=== PATIENT | female | born 1945 | race Caucasian/White ===

== ENCOUNTER 2017-01-11 10:10 | Emergency (ER) | payer MEDICARE ==
[2017-01-11 11:01] LABS: #Basophils 0.1 thou/uL (0.0-0.2); #Eosinphils 0.2 thou/uL (0.0-0.7); #Lymphocytes 1.1 thou/uL (1.20-3.40); #Monocytes 1.1 thou/uL (0.11-0.59); #Neutrophils 6.9 thou/uL (1.40-6.50); %Basophils 1.1 % (0.0-1.0); %Eosinophils 1.8 % (0.0-10.0); %Lymphocytes 11.9 % (21.0-51.0); %Monocytes 11.6 % (0.0-10.0); Hematocrit 30.2 % (36.0-47.0); Mean Platelet Volume 5.7 fL (7.4-10.4); Red Blood Cell (RBC) Count 3.55 mill/uL (4.20-5.40); White Blood Cell (WBC) Count 9.3 thou/uL (4.8-10.8)
[2017-01-11] MEDS ORDERED: Ondansetron HCl/PF 4 MG/2 ML Vial ONE (11:08)
[2017-01-11 11:17] LABS: ALT (SGPT) 21 U/L (8-55); AST (SGOT) 24 U/L (5-34); Alkaline Phosphatase 89 U/L (40-150); Anion Gap 14 mmol/L (10-20); BUN (Urea Nitrogen) 16 mg/dL (9.8-20.1); Bilirubin, Total 0.4 mg/dL (0.2-1.2); CK (CPK) 92 U/L (29-168); Calc. Creatinine Clearance 0 mL/min (70-130); Calcium 8.9 mg/dL (7.8-10.44); Carbon Dioxide 23 mmol/L (23-31); Chloride 95 mmol/L (98-107); Estimated GFR-MDRD 38; Globulin 4.2 g/dL (2.4-3.5); Lipase 60 U/L (8-78); Protein, Total 7.8 g/dL (6.0-8.3)
[2017-01-11 11:21] LABS: Troponin I Less than 0.010 ng/mL (< 0.028)
--- NOTE | 2017-01-11 11:21 | RAD ---
UPRPIGHT PORTABLE CHEST ONE VIEW: History: 71-year-old female with nausea and vomiting, anxiety, neck pain, sore throat. Comparison: 11-15-16 FINDINGS: Heart size is within normal limits. Minimal stable increased linear and interstitial markings bilate rally. Minimal stable deformity of the right humeral neck. Anterior cervical fusion changes of the l ower cervical spine. IMPRESSION: No acute intrathoracic disease. No evidence of pneumonia. Stable from prior study. POS: [facility]
[2017-01-11 14:01] LABS: Bilirubin Negative (Negative); Blood, Urine Negative (Negative); Glucose, Urine (Dipstick) Negative (Negative); Ketone, Urine Negative (Negative); Nitrite Negative (Negative); Protein, Urine (Dipstick) 30 mg/dL (Neg-Trace); Urobilinogen 0.2 mg/dL (0.2-1.0)
[2017-01-11 14:02] LABS: Bacteria/HPF None Seen HPF (None Seen); Hyaline Casts/LPF 0-3 HYALINE CAST LPF (0-3 Hyaline); RBC/HPF 0-3 HPF (0-3); Squamous Epithelial None Seen HPF (0-3)
--- OUTSIDE RECORDS SUMMARY | 2017-01-12 03:20 | XMS | Clinical Summary ---
:1945 Author Organization [facility] Address [address] [place] [address] Phone Care Team Providers Name Role Phone , Primary Care Provider Unavailable Allergies Not on File Current Medications Not on file Active Problems Not on file Social History Tobacco Use Types Packs/Day Years Used Date Never Assessed Sex Assigned at Date Recorded Not on file Last Filed Vital Signs Not on file Plan of Treatment Not on file Results Not on filefrom Last 3 Months
== END 2017-01-11 15:55 | disposition home or self-care (01) ==
LOC: ERS 10:10
DX: R11.2 Nausea with vomiting, unspecified (principal); E11.9 Type 2 diabetes mellitus without complications; I10 Essential (primary) hypertension; K51.90 Ulcerative colitis, unspecified, without complications; Z86.73 Personal history of transient ischemic attack (TIA), and cerebral infarction without residual deficits; Z87.891 Personal history of nicotine dependence; Z79.899 Other long term (current) drug therapy
CPT/HCPCS: 71010; 80053; 81003; 81015; 82553; 83690; 84443; 84484; 85025; 93005; 96361; 96374; J2405

== ENCOUNTER 2017-03-10 05:19 | Inpatient (IN) | payer MEDICARE ==
[2017-03-10 06:07] LABS: #Basophils 0.1 thou/uL (0.0-0.2); #Eosinphils 0.2 thou/uL (0.0-0.7); #Monocytes 0.9 thou/uL (0.11-0.59); %Eosinophils 3.5 % (0.0-10.0); %Lymphocytes 13.7 % (21.0-51.0); %Monocytes 12.3 % (0.0-10.0); Hematocrit 31.8 % (36.0-47.0); Mean Platelet Volume 5.5 fL (7.4-10.4); Red Blood Cell (RBC) Count 3.65 mill/uL (4.20-5.40); White Blood Cell (WBC) Count 7.1 thou/uL (4.8-10.8)
[2017-03-10 06:31] LABS: ALT (SGPT) 16 U/L (8-55); AST (SGOT) 20 U/L (5-34); Alkaline Phosphatase 75 U/L (40-150); Anion Gap 14 mmol/L (10-20); BUN (Urea Nitrogen) 20 mg/dL (9.8-20.1); Bilirubin, Total 0.4 mg/dL (0.2-1.2); Calc. Creatinine Clearance 0 mL/min (70-130); Calcium 9.5 mg/dL (7.8-10.44); Carbon Dioxide 23 mmol/L (23-31); Chloride 93 mmol/L (98-107); Estimated GFR-MDRD 43; Protein, Total 7.9 g/dL (6.0-8.3)
[2017-03-10 06:34] LABS: Troponin I Less than 0.010 ng/mL (< 0.028)
[2017-03-10 07:33] LABS: Bilirubin Negative (Negative); Blood, Urine Negative (Negative); Glucose, Urine (Dipstick) Negative (Negative); Ketone, Urine Negative (Negative); Nitrite Negative (Negative); Protein, Urine (Dipstick) 100 mg/dL (Neg-Trace); Urobilinogen 0.2 mg/dL (0.2-1.0)
[2017-03-10 07:48] LABS: Renal Epithelial 0-3 HPF (0-3); Squamous Epithelial 0-3 HPF (0-3); Transitional Epithelial 0-3 HPF (0-3); WBC/HPF 0-3 HPF (0-3)
[2017-03-10 07:49] LABS: Bacteria/HPF None Seen HPF (None Seen); Hyaline Casts/LPF 0-3 HYALINE CAST LPF (0-3 Hyaline)
[2017-03-10 08:02] LABS: RBC/HPF 0-3 HPF (0-3)
--- NOTE | 2017-03-10 08:55 | RAD ---
CHEST 1 VIEW: Date: 03/10/17 HISTORY: Altered mental status. COMPARISON: Chest 1 view dated 01/22/17. FINDINGS: Lungs are clear. No pneumothorax or effusion. Cardiac silhouette and mediastinal contours within norm al limits. Chronic interstitial changes. IMPRESSION: No acute intrathoracic abnormality. POS: C
--- NOTE | 2017-03-10 09:12 | CT ---
PRELIMINARY REPORT/[facility]/EMERGENCY AFTER HOURS PROCEDURE: EXAM: CT Angiography Head With Intravenous Contrast CLINICAL HISTORY: 72 years old, female; Signs and symptoms; Dizziness and giddiness TECHNIQUE: Axial computed tomographic angiography images of the head with intravenous contrast using CT angiogra phy protocol. CONTRAST: 60 mL of ISOVUE administered intravenously. COMPARISON: No relevant prior studies available. FINDINGS: Right internal carotid artery: No acute process. Intracranial segment is patent with no significant s tenosis. No aneurysm. Right anterior cerebral artery: Unremarkable. No occlusion or significant stenosis. No aneurysm. Right middle cerebral artery: Unremarkable. No occlusion or significant stenosis. No aneurysm. Right posterior cerebral artery: Unremarkable. No occlusion or significant stenosis. No aneurysm. Right vertebral artery: Unremarkable as visualized. Left internal carotid artery: There is mild atherosclerotic calcification of the left internal carot id artery with up to 25% luminal stenosis. No aneurysm. Left anterior cerebral artery: Unremarkable. No occlusion or significant stenosis. No aneurysm. Left middle cerebral artery: Unremarkable. No occlusion or significant stenosis. No aneurysm. Left posterior cerebral artery: Unremarkable. No occlusion or significant stenosis. No aneurysm. Left vertebral artery: Unremarkable as visualized. Basilar artery: Unremarkable. No occlusion or significant stenosis. No aneurysm. Brain: There is a moderately severe burden of hypodense lesions in the frontoparietal white matter. There is no acute cerebral cortical edema. No hemorrhage. IMPRESSION: 1. There is a moderately severe burden of hypodense lesions in the frontoparietal white matter. Thes e are probably secondary to chronic small vessel ischemic disease, however they are age indeterminate without a comparison study and I cannot exclude an acute or subacute lacunar infarction. If there is clinical suspicion of acute ischemia, further evaluation with MRI could be considered. 2. There is no mass effect, midline shift, intracranial hemorrhage, or large arterial vessel territor y acute cerebral cortical edema. 3. There is no high grade arterial stenosis, occlusion, dissection, aneurysm or vascular malformation . 4. There is mild atherosclerotic calcification of the left internal carotid artery with up to 25% lum inal stenosis. This interpretation was based upon the receipt of 488 image(s). EXAM: CT Angiography Neck With Intravenous Contrast CLINICAL HISTORY: 72 years old, female; Signs and symptoms; Dizziness and giddiness TECHNIQUE: Axial computed tomographic angiography images of the neck with intravenous contrast using CT angiogra phy protocol. CONTRAST: 60 mL of ISOVUE administered intravenously. COMPARISON: No relevant prior studies available. FINDINGS: VASCULATURE: Right common carotid artery: Unremarkable. No significant stenosis. No dissection or occlusion. Right internal carotid artery: There is 60% stenosis of the right carotid bulb due to calcified plaqu e. There is 50% stenosis of the right internal carotid artery origin due to calcified plaque. No dissect ion or occlusion. Right external carotid artery: Unremarkable. No occlusion. Right vertebral artery: Unremarkable. No significant stenosis. No dissection or occlusion. Left common carotid artery: Unremarkable. No significant stenosis. No dissection or occlusion. Left internal carotid artery: There is 40% stenosis of the left carotid bulb due to calcified atheros clerotic plaque. There is 40% stenosis of the left internal carotid artery origin due to calcified at herosclerotic plaque. No dissection or occlusion. Left external carotid artery: Unremarkable. No occlusion. Left vertebral artery: Unremarkable. No significant stenosis. No dissection or occlusion. NECK: Bones/joints: There is anterior metallic fusion of the mid to lower cervical spine C5-C7. No acute fracture. No dislocation. Soft tissues: Unremarkable as visualized. No mass. Lung apices: There is mild/moderate air trapping in the upper lungs. CAROTID STENOSIS REFERENCE USING NASCET CRITERIA: % ICA stenosis = (1 - narrowest ICA diameter/diameter of distal cervical ICA) x 100. Mild - <50% stenosis. Moderate - 50-69% stenosis. Severe - 70-94% stenosis. Near occlusion - 95-99% stenosis. Occluded - 100% stenosis. IMPRESSION: 1. There is no high grade arterial stenosis, occlusion, dissection, or aneurysm. 2. There is 40% stenosis of the left carotid bulb due to calcified atherosclerotic plaque. 3. There is 40% stenosis of the left internal carotid artery origin due to calcified atherosclerotic plaque. 4. There is 60% stenosis of the right carotid bulb due to calcified plaque. 5. There is 50% stenosis of the right internal carotid artery origin due to calcified plaque. 6. There is mild/moderate air trapping in the upper lungs. This interpretation was based upon the receipt of 488 image(s). Thank you for allowing us to participate in the care of your patient. Dictated and Authenticated by: Chris Gutierrez DO 03/10/2017 7:44 AM Central Time ([place] & [place]) FINAL REPORT CONTRAST ENHANCED CTA NECK AND INTRACRANIAL CTA: Date: 03/10/17 HISTORY: Dizziness, lightheadedness. TECHNIQUE: Contrast enhanced CTA neck and intracranial CTA obtained. 2D and 3D reconstructed images performed on an independent 3D workstation. FINDINGS/IMPRESSION: This is the final report. Preliminary exam was performed by [facility]. I concur with the dictation from [facility]. No significant evidence of intracranial arterial vascular abnormality seen. Bilateral distal CCA and proximal ICA atherosclerotic plaque seen, approxi mately 60% on the right and 40% on the left. POS: [facility]
[2017-03-10] MEDS ORDERED: cefTRIAXone\\ROCEPHIN 1 GM, Syringe 0.4 ML in Sterile Water 9.6 ML SLOW IVP SCH (10:15)
--- NOTE | 2017-03-10 13:40 | HP ---
PRIMARY CARE PHYSICIAN: Dr. Capo Coombs. CHIEF COMPLAINT: Confusion, altered mental state. HISTORY OF PRESENT ILLNESS: This is a 72-year-old patient of Dr. Capo Coombs with a history of a past TIA, type 2 diabetes, chronic kidney disease, anxiety and depression, hypertension, hyperlipidemia, history of coronary artery disease , persistent hyponatremia, who presented to the emergency department with complaints of confusion. She had a similar admission in 01/2017 and was found to be moderately hyponatremic and seem like her symptoms improved with resolving the hyponatremia. A workup has been done with no known etiology for her persistent hyponatremia. She presented to the emergency department and found to have word finding difficulties, slurred speech, and some left-sided neglect, which seems to have resolved at this point. She is now being admitted for further evaluation to rule out for CVA and Neurology evaluation. PAST MEDICAL HISTORY: Positive for hypertension, type 2 diabetes, questionable history of CVA versus transient ischemic attack, resultant seizure disorder. She is followed by Dr. Baxter for this. She has a history of ulcerative colitis followed by Dr. Jarquin. History of tachycardia followed by Dr. Bernal. Again, type 2 diabetes, hypertension, hyperlipidemia, chronic depression and anxiety with grief disorder since the passing of her . Chronic back pain, again chronic hyponatremia. MEDICATIONS: Include metformin 1000 mg b.i.d., Valium 2 mg p.r.n., Lialda 1.2 grams daily, metoprolol 100 mg once daily, Estrace vaginal cream daily, Keppra 500 mg b.i.d. ALLERGIES: TRAMADOL, BYSTOLIC, CIPROFLOXACIN, SEROQUEL. PAST SURGICAL HISTORY: Bilateral cataract removal, cholecystectomy in 2001, cervical neck surgery in 2002, cystoscopy in 11/2016, vein stripping at age of 26, and tubal ligation at age of 31. FAMILY HISTORY: Father with lung cancer. Mother with depression, hypertension, and mental illness. Siblings with schizophrenia and asthma. Son with hypertension. SOCIAL HISTORY: Quit smoking over 15 years ago. No alcohol, no drug use. She lives alone, but at [facility] assisted living. REVIEW OF SYSTEMS: As per the history of present illness. General: She denies any recent fevers or chills. Again, recent hospitalization in 01/2017. HEENT: She denies headache, visual or hearing changes. Cardiovascular: She has occasional episodes of chest pains that come and go. She has been followed by Dr. Bernal. Pulmonary: Denies cough or hemoptysis. Gastrointestinal: Denies nausea, vomiting, abdominal pain, melena, hematochezia. Genitourinary: Denies dysuria or hematuria. Neurologic: Episodes of confusion. She has some numbness in her feet. She denies weakness. Last seizure was several months ago , possibly a year ago. Musculoskeletal: Occasional neck pains, occasional joint pains. PHYSICAL EXAMINATION: VITAL SIGNS: She is afebrile, heart rate in the 80s and 90s, respirations 15, blood pressure 130s/80s. GENERAL: She is awake and alert. Speech is clear. She does seem confused at times with answering questions. No slurred speech. She does have some word finding difficulties at times, may be more stress related. HEENT: Mucosa is moist. NECK: Supple. HEART: Regular rate and rhythm. LUNGS: Clear. ABDOMEN: Obese, soft, nontender, nondistended. EXTREMITIES: With no edema. NEUROLOGIC: Cranial nerves II through XII grossly intact. Strength is 5/5 bilaterally. Sensation, there was some decreased sensation in the dorsum of bilateral feet. LABORATORY DATA AND IMAGING: Sodium 126, potassium 3.8, chloride 93, CO2 23, BUN and creatinine are 20 and 1.23 with a GFR of 43, serum glucose of 203, calcium 9.5, albumin 3.9. White blood cell count 7,100, hemoglobin and hematocrit are 10.4 and 31.8, platelets 393. Urinalysis with 100 protein, small leukocyte esterase. Chest x-ray revealed no acute abnormalities. CT angiogram and [place] angiogram with contrast reveals severe burden of hypodense lesions in the frontal parietal white matter likely secondary to chronic small vessel disease, but cannot rule out acute ischemia, no mass effect , no hemorrhages, no high-grade stenosis or aneurysms, mild atherosclerotic calcification of the left internal carotid artery. ASSESSMENT AND PLAN: This is a 72-year-old female patient who has multiple medical problems including type 2 diabetes, history of cerebrovascular accident , history of depression and anxiety, history of hypertension and hypercholesterolemia, now with acute mental status change and hyponatremia. 1. Mental status change, agree with rule out cerebrovascular accident protocol. We will consult Neurology. PT, OT and speech therapy for evaluation. We will check MRI of the brain. Possibly a component of multi- infarct dementia as well as her anxiety are contributing to her confusion. 2. Carotid stenosis on CT angiogram. Await Neurology evaluation. Consider Vascular Surgery evaluation. 3. Hyponatremia. We will start fluid restriction as well as a normal saline infusion and follow closely. We will continue to look at medication, etiology could be due to her mental state and over hydrating. 4. Coronary artery disease, stable. We will continue Plavix and aspirin. 5. Type 2 diabetes. We will continue the metformin and monitor her renal function. We will start Humalog sliding scale as well. 6. Code status: The patient desires to be FULL CODE. 7. Depression and anxiety. We will continue the diazepam p.r.n. I will consider starting antidepressants. 8. Ulcerative colitis. Appears to be stable. Will continue her oral therapy. MTDD
[2017-03-10] MEDS ORDERED: ISOVUE-370 76%-LOCM 1 ML ONE (13:42)
[2017-03-10] MEDS: Mesalamine DR 400 mg Capsule PO SCH ×2 (15:00→21:00)
--- NOTE | 2017-03-10 15:24 | MRI ---
MRI BRAIN: Date: 03/10/17 HISTORY: Dizziness, lightheadedness. TECHNIQUE: Multiplanar, multisequence noncontrast enhanced MRI of brain obtained. FINDINGS: Comparison made to previous exam from 04/12/16. Images demonstrate numerous areas of decreased signal on the gradient echo sequences throughout the b rain compatible with multiple old areas of tiny petechial hemorrhages, too numerous to count. This wa s seen on the patient's previous MRI and does not appear to be acute. No evidence of areas of diffusi on restriction seen. Areas of bilateral parietal reese-white matter areas of abnormal T2 signal seen o n the FLAIR weighted sequences. These were present on the patient's previous numerous MRIs and are st able. No acute infarctions or significant interval change is seen. Normal flow-voids seen in the jennifer r intracranial vessels. IMPRESSION: Stable MRI appearance of the brain. No acute intracranial abnormality seen. POS: [facility]
[2017-03-10] MEDS ORDERED: HumaLOG 300 UNITS/3 ML VIAL SC SCH (17:00)
[2017-03-10] MEDS: Sodium Chloride 0.9% 1,000 ML IV SCH (17:58)
[2017-03-10] MEDS ORDERED: Dextrose 5% in Water 1,000 ML IV PRN (19:30)
[2017-03-10] MEDS ORDERED: Dextrose 50% Abboject 50 ML SYRINGE IVP PRN (19:30)
[2017-03-10] MEDS ORDERED: HumaLOG 300 UNITS/3 ML VIAL SC PRN (19:30)
[2017-03-10] MEDS ORDERED: Diazepam 5 MG TAB PO PRN (20:26)
[2017-03-10] MEDS: levETIRAcetam 500 MG TAB PO SCH (21:02)
[2017-03-11 05:45] LABS: Anion Gap 10 mmol/L (10-20); BUN (Urea Nitrogen) 19 mg/dL (9.8-20.1); Calc. Creatinine Clearance 47 mL/min (70-130); Carbon Dioxide 24 mmol/L (23-31); Chloride 97 mmol/L (98-107); Estimated GFR-MDRD 43
[2017-03-11] MEDS: Sodium Chloride 0.9% 1,000 ML IV SCH (07:24)
[2017-03-11] MEDS ORDERED: metFORMIN 500 MG TAB PO SCH (08:00)
[2017-03-11] MEDS: Mesalamine DR 400 mg Capsule PO SCH (08:45)
[2017-03-11] MEDS: levETIRAcetam 500 MG TAB PO SCH (08:46)
[2017-03-11] MEDS ORDERED: Clopidogrel Bisulfate 75 MG TAB PO SCH (09:00)
[2017-03-11] MEDS ORDERED: Aspirin 81 mg Enteric Coated Tablet PO SCH (09:00)
[2017-03-11] MEDS ORDERED: Metoprolol Tartrate 50 MG TAB PO SCH (09:00)
[2017-03-11] MEDS ORDERED: Lisinopril 10 MG TAB PO SCH (09:00)
[2017-03-11 11:53] VITALS: BP 164/81; TEMP 98.3
--- NOTE | 2017-03-11 19:26 | DIS ---
DATE OF ADMISSION: 03/10/2017 DATE OF DISCHARGE: 03/11/2017 ADMISSION DIAGNOSES: Confusion, altered mental state. DISCHARGE DIAGNOSES: Hyponatremia, delirium, anxiety, depression. OTHER DIAGNOSES: Type 2 diabetes, ulcerative colitis, coronary artery disease, carotid stenosis. CONSULTATIONS: Dr. Bee for Neurology. PROCEDURES: Telemetry monitoring. MRI of the brain, CT angio of the brain and neck, chest x-ray, fl uid restriction, saline infusion. HOSPITAL COURSE: This is a 72-year-old female patient with multiple medical problems including ulcer ative colitis, history of TIA, history of seizure disorder, history of tachycardia, history of type 2 diabetes, history of anxiety and depression since passing of her presented to the emergency department with altered mental state, confusion, word finding difficulties. She was admitted for rul e out CVA. CT angiogram was done, which revealed carotid stenosis, but no aneurysms. MRI was done, which showed no active changes although chronic ischemic changes. She was seen by Dr. Bee who fe lt like she just had a nonspecific episode of confusion, which has resolved. Urinalysis was negative . She seemed to be back at her baseline. I had a long discussion with her about depression and anxi ety. She has been seeing a counselor as an outpatient and decided to go ahead and start her on any a ntidepressants with close follow up with Dr. Coombs. DISCHARGE PHYSICAL EXAMINATION: VITAL SIGNS: Temperature 97.7, pulse 97, respirations 18, blood pressure 162/98, pulse ox 99% on magda m air. GENERAL: She is awake and alert, in no acute distress. Speech is clear. Conversation was fluid. M ucosa is moist. NECK: Supple. HEART: Regular rate and rhythm. LUNGS: Clear bilaterally. ABDOMEN: Obese. EXTREMITIES: With no edema. She does have decreased sensation on the dorsum of both feet. She says this is chronic and possibly due to her diabetes. DISCHARGE LABORATORY DATA: Sodium 127, potassium 3.8, chloride 97, CO2 of 24, BUN and creatinine 19 and 1.22 with a GFR of 43, serum glucose was 181. Urinalysis was negative. Brain MRI again showed c hronic ischemic changes, but no sign of cerebrovascular accident. Chest x-ray showed no active disea se. CT angiogram revealed [id number] hypodense lesions in the frontoparietal white matter, p robably secondary to chronic small vessel ischemic disease. No mass effect, no midline shift, mild c alcifications in the left internal carotid artery with 40% stenosis and 50%-60% stenosis on the right . DISCHARGE MEDICATIONS: Aspirin 81 mg daily. She is to discontinue the Plavix, Valium 10 mg at bedti me, Keppra 750 mg b.i.d., lisinopril 10 mg daily, Lialda 1.2 mg b.i.d., metformin 1000 mg b.i.d., Lop ressor 100 mg daily, Protonix 40 mg daily, Zoloft 25 mg daily. FOLLOWUP INSTRUCTIONS: Patient to follow up with Dr. Coombs in 1-2 weeks. Discussed fluid restrictio n, limiting to not more than 1 liter a day at this time. She is to restart her aspirin 81 mg a day d ue to the carotid stenosis and heart disease. Again follow up instructions to follow up with Dr. Padmaja cabrera in 1-2 weeks.
== END 2017-03-11 12:41 | DRG 948 ==
LOC: ERS 05:19 → ERHOLD 08:45 → 2SE 14:58
PROVIDERS: ADMIT Internal Medicine; ATTEND Internal Medicine
DX: R41.0 Disorientation, unspecified (principal); E87.1 Hypo-osmolality and hyponatremia; E11.69 Type 2 diabetes mellitus with other specified complication; K51.90 Ulcerative colitis, unspecified, without complications; I65.23 Occlusion and stenosis of bilateral carotid arteries; Z86.73 Personal history of transient ischemic attack (TIA), and cerebral infarction without residual deficits; F32.9 Major depressive disorder, single episode, unspecified; F41.9 Anxiety disorder, unspecified; G40.909 Epilepsy, unspecified, not intractable, without status epilepticus; I25.10 Atherosclerotic heart disease of native coronary artery without angina pectoris
CPT/HCPCS: 36415; 36416; 51701; 70450; 70496; 70498; 70551; 71010; 80048; 80053; 81001; 82553; 84484; 85025; 87086; 93005; 93306; 94760; 96374; A4216; A4353; G8978-GP-CH; G8979-GP-CH; G8980-GP-CH; G9165-GN-CI; G9166-GN-CI; J0696

== ENCOUNTER 2017-05-04 10:12 | Outpatient (CLI) | payer MEDICARE ==
--- NOTE | 2017-05-11 14:13 | EEG ---
Referring Physician: DR. ANDREIA GILMORE EEG # [id number] TEST TYPE: ROUTINE OUTPATIENT PROCEDURE: Outpatient electroencephalogram NAME OF PATIENT: Shira Reid DATE EEG DONE: 05/04/2017 INDICATION: History of seizures and stroke, slurred speech, leg weakness, memory deficit REPORT: This is a 22-channel digital EEG recording utilizing 10-20 international electrode placement system on a patient with history of seizures, stroke, who presents with slurred speech, leg weakness, memory deficit with no seizure or loss of consciousness. During wakefulness, the background activity consists of low to moderate amplitude theta rhythm of 6-7 Hz. It is symmetric and reactive. There is occasionally 8 Hz seen. There is low amplitude fast beta activity noted and also, myogenic activity noted representing frontalis and temporalis muscles bilaterally. DROWSINESS AND SLEEP: Subject is able to attain some drowsiness with diffuse theta activity. There is no clear sleep recorded during this EEG. ABNORMALITIES: Mild diffuse slowing noted. There may be spike and slow wave activity noted in the right hemisphere, posterior region at 10:59:41. There is no other clear convincing epileptiform activity noted throughout the recording. No electrographic seizures noted. INDUCTION: HYPERVENTILATION: With fair effort results in diffuse theta activity. PHOTIC STIMULATION: No photic drive seen. EK per minute. IMPRESSION: DURING THIS EEG, MILD DIFFUSE SLOWING NOTED. THERE MAY BE SPIKE AND SLOW WAVE ACTIVITY NOTED IN THE RIGHT HEMISPHERE, POSTERIOR REGION AT 10:59:41, SEEN ONLY ONCE. THERE IS NO OTHER CLEAR AND CONVINCING EPILEPTIFORM ACTIVITY NOTED THROUGHOUT THE RECORDING. CLINICAL CORRELATION RECOMMENDED. Tag Press Operator: ROSIE Lead Manufacturing Engineer: EEG.PADMINI SALAZAR
== END 2017-05-04 10:13 | disposition home or self-care (01) ==
LOC: EEG 10:12
PROVIDERS: ATTEND Student in an Organized Health Care Education/Training Program
DX: G40.409 Other generalized epilepsy and epileptic syndromes, not intractable, without status epilepticus (principal)
CPT/HCPCS: 95816

== ENCOUNTER 2017-05-09 16:39 | Inpatient (IN) | payer MEDICARE ==
[2017-05-09] MEDS ORDERED: niCARdipine 20MG In NaCl 20 MG/200 ML BAG ONE (16:44)
[2017-05-09 16:57] LABS: Hemoglobin 10.4 g/dL (12.0-16.0); Mean Corpuscular HGB CONC 31.6 g/dL (32.0-36.0); Mean Corpuscular Hemoglobin 27.4 pg (27.0-31.0); Mean Corpuscular Volume 86.9 fl (81.0-99.0); Mean Platelet Volume 5.5 fL (7.4-10.4); Platelet Count 382 thou/uL (130-400); RBC Distribution Width 12.7 % (11.5-14.5); Red Blood Cell (RBC) Count 3.78 mill/uL (4.20-5.40); White Blood Cell (WBC) Count 6.7 thou/uL (4.8-10.8)
[2017-05-09 17:05] LABS: INR-International Normal Ratio 0.9; PTT 34.4 SEC (22.9-36.1); Prothrombin Time 12.6 SEC (12.0-14.7)
[2017-05-09 17:12] LABS: pH, Arterial 7.39 (7.35-7.45)
[2017-05-09 17:13] LABS: Actual Bicarbonate (HCO3a) 22.9 mEq/L (22-26); Analyzer IN Cardio ER; Base Excess (BEa) -1.6 mEq/L (0 (+/-) 2.5); CO2 Tension 38.6 mmHg (35.0-45.0); Calcium, Ionized 1.1 mmol/L (1.12-1.30); Carboxyhemoglobin (COHb) 1.1 gm% (0.0-3.0); Hematocrit-ABG 38.2 % (36.0-47.0); Hemoglobin (Hb) 10.3 g/dL (12.0-16.0); O2 Tension (PaO2) 100.4 mmHg (80.0-100.0); Puncture Site RRA
[2017-05-09 17:23] LABS: Band 15 % (5-11); Eosinophils 4 % (0-10); Lymphocytes 18 % (21-51); MDiff Complete? YES; Monocytes 13 % (0-10); Neutrophil 48 % (42-75); PLT Morphology Comment Appears Adequate; Polychromasia SLIGHT = 2-3 cells (100X) (0-2/hpf); Reactive Lymphocytes 1 % (0-10)
[2017-05-09] MEDS ORDERED: manNITOL 20% 0 ML ONE (17:24)
[2017-05-09 17:25] LABS: CKMB 3.2 ng/mL (0-6.6); Troponin I Less than 0.010 ng/mL (< 0.028)
[2017-05-09 17:36] LABS: ALT (SGPT) 20 U/L (8-55); AST (SGOT) 23 U/L (5-34); Albumin 4.2 g/dL (3.4-4.8); Alkaline Phosphatase 75 U/L (40-150); Anion Gap 14 mmol/L (10-20); BUN (Urea Nitrogen) 19 mg/dL (9.8-20.1); Bilirubin, Total 0.3 mg/dL (0.2-1.2); Calc. Creatinine Clearance 0 mL/min (70-130); Calcium 9.3 mg/dL (7.8-10.44); Carbon Dioxide 24 mmol/L (23-31); Chloride 96 mmol/L (98-107); Estimated GFR-MDRD 43; Globulin 3.8 g/dL (2.4-3.5); Glucose 162 mg/dL (83-110); Potassium 3.3 mmol/L (3.5-5.1); Sodium 131 mmol/L (136-145)
[2017-05-09] MEDS ORDERED: Mannitol 12.5 GM/50 ML IV SCH (17:45)
--- NOTE | 2017-05-09 18:23 | CT ---
NONCONTRAST CT OF THE BRAIN 05/09/17 INDICATION: Stroke alert. Found unresponsive with left sided facial droop. FINDINGS: The examination was compared to a prior dated 01/22/17. There is a 4 cm intraparenchymal hematoma seen within the region of the left thalamus with surrounding vasogenic edema. There is intervertebral ext ension of the third ventricles, lateral ventricles, and fourth ventricles. There is also extension of hemorrhage into the left midbrain. There is left to right midline shift of 4 mm. There is some marvin a present also within the left aspect of the mid brain and dary causing some mild effacement of the a nterior basilar cistern. The mastoid air cells are clear. The skull is intact. IMPRESSION: 1. Intraparenchymal hematoma seen within the region of the left thalamus with interventricular e xtension. 2. There is left to right midline shift of approximately 5 mm. There is some vasogenic edema see n surrounding the hematoma that has components that does extend into the very superior aspect of the left aspect of the mid brain. Vasogenic edema causes some mild effacement of the anterior basilar cis tern. Findings called to Dr. Leblanc at 4:58 p.m. on 05/09/17. Code CR. POS: [facility]
[2017-05-09] MEDS ORDERED: CEFAZOLIN/Water 2 GM/20 ML SYRINGE ONE (18:44)
[2017-05-09] MEDS ORDERED: Bisacodyl 10 MG SUPP PR PRN (18:47)
[2017-05-09] MEDS ORDERED: niCARdipine 20MG in NaCl 200 ML BAG IVPB PRN (18:47)
[2017-05-09 19:07] LABS: Bilirubin Negative (Negative); Blood, Urine Negative (Negative); Clarity CLEAR (Clear); Glucose, Urine (Dipstick) 100 mg/dL (Negative); Leukocyte Negative (Negative); Nitrite Negative (Negative); Protein, Urine (Dipstick) Trace mg/dL (Neg-Trace); Specific Gravity, Urine 1.013 (1.002-1.036); Urobilinogen 0.2 mg/dL (0.2-1.0); pH, Urine 7.5 (5.0-9.0)
[2017-05-09] MEDS: Propofol 1,000 MG/100 ML VIAL IV PRN (19:40)
[2017-05-09] MEDS ORDERED: Sodium Chloride 0.9% 10 ML ONE ×2 (20:05→20:14)
[2017-05-09] MEDS ORDERED: Famotidine/PF 20 mg/2ml Vial SLOW IVP SCH (21:00)
[2017-05-09] MEDS ORDERED: CEFAZOLIN/Water 2 GM/20 ML SYRINGE SLOW IVP SCH (21:30)
[2017-05-09] MEDS ORDERED: Metoprolol Tartrate 5 MG/5 ML VIAL IVP PRN (21:30)
[2017-05-09] MEDS: niCARdipine HCl 25 MG in Sodium Chloride 0.9% 250 ML 240 ML IVPB PRN (22:05)
[2017-05-09] MEDS: Fentanyl 100 MCG/2 ML VIAL SLOW IVP PRN (22:15)
[2017-05-09] MEDS: Sodium Chloride 0.9% 1,000 ML IV SCH (22:16)
[2017-05-10] MEDS: Fentanyl 100 MCG/2 ML VIAL SLOW IVP PRN (02:00)
[2017-05-10] MEDS: niCARdipine HCl 25 MG in Sodium Chloride 0.9% 250 ML 240 ML IVPB PRN ×2 (02:01→20:19)
[2017-05-10 04:45] LABS: #Basophils 0.1 thou/uL (0.0-0.2); #Lymphocytes 0.5 thou/uL (1.20-3.40); #Monocytes 1.2 thou/uL (0.11-0.59); #Neutrophils 10.1 thou/uL (1.40-6.50); %Basophils 0.5 % (0.0-1.0); %Eosinophils 0.1 % (0.0-10.0); %Lymphocytes 4.3 % (21.0-51.0); %Monocytes 10.2 % (0.0-10.0); %Neutrophils 84.9 % (42.0-75.0); Hemoglobin 9.8 g/dL (12.0-16.0); Mean Corpuscular HGB CONC 32.7 g/dL (32.0-36.0); Mean Corpuscular Hemoglobin 28.3 pg (27.0-31.0); Mean Corpuscular Volume 86.5 fl (81.0-99.0); Mean Platelet Volume 5.8 fL (7.4-10.4); Platelet Count 371 thou/uL (130-400); RBC Distribution Width 12.8 % (11.5-14.5); Red Blood Cell (RBC) Count 3.48 mill/uL (4.20-5.40); White Blood Cell (WBC) Count 11.9 thou/uL (4.8-10.8)
[2017-05-10 04:59] LABS: Anion Gap 13 mmol/L (10-20); BUN (Urea Nitrogen) 18 mg/dL (9.8-20.1); Calc. Creatinine Clearance 37 mL/min (70-130); Calcium 8.8 mg/dL (7.8-10.44); Carbon Dioxide 22 mmol/L (23-31); Chloride 100 mmol/L (98-107); Estimated GFR-MDRD 35; Glucose 230 mg/dL (83-110); Potassium 3.9 mmol/L (3.5-5.1); Sodium 131 mmol/L (136-145)
[2017-05-10] MEDS: CEFAZOLIN 1 GM, Syringe 2.5 ML in Sterile Water 7.5 ML SLOW IVP SCH ×3 (05:15→22:07)
--- NOTE | 2017-05-10 06:11 | HP ---
Avery Bocanegra PA-C, dictating for Arnulfo Covington M.D. This is a 50-minute initial patient consult in which greater than 50% of the exam was spent in counse ling and coordinating the patient's care. The remainder of the exam was spent in review of the pio nt's medical records and appropriate imaging studies. CHIEF COMPLAINT: Altered mental status, patient found unresponsive with left thalamic hemorrhage. HISTORY OF PRESENT ILLNESS: Ms. Reid presents to the [facility] via EMS as she [facility] for an unknown length of time. Apparently, the patient wa s speaking with her son roughly at 3:00 and roughly around 4:00 hit her lifeline alert and became unr esponsive. Due to this lifeline alert, EMS was contacted and the patient's daughter came to her the facility where she resides. At that time, the patient was unable to protect her airway and she was i ntubated, received paralytics at that time. She has received no other paralytics in the emergency ro om at the time of the exam at roughly 6 p.m. The patient's daughter provides the history as well as review of patient's medical records. Apparently, the patient has a seizure disorder and has been on Keppra and has a history of hyponatremia. She also was a surgical nurse, but is retired. The zahira johnson was previously on aspirin and had a history of hypertension and systolic blood pressure was in the 200s when she presented earlier tonight. The patient does not use tobacco. She does have a history of some dizziness and TIAs with slight amount of gait difficulty over the past several months for whi ch she has required use of a cane. The patient has not had many falls; however, that the patient's laura espinal knows about. Review of the patient's CT scan shows left thalamic hemorrhage entering into th e left ventricular system and component of hydrocephalus. PHYSICAL EXAMINATION: The patient is currently intubated. Her GCS is V1 E1 M4, which makes her a 6T . She does have corneal reflexes bilaterally. Pupils are sluggishly reactive bilaterally and the ri ght pupil is roughly 3 mm on the right and 5 mm on the left. She is currently overbreathing the vent ilator and has a cough reflex. She also has positive Doll's eyes. She attempts to withdrawal in the bilateral lower extremities and has very minimal withdrawal to painful stimulus on the right with mo re withdrawal to painful stimulus on the left upper extremities. IMPRESSION AND DIAGNOSES: 1. Status post hypertensive bleed into the left thalamic region extending into the left ventricular systems. 2. History of hypertension. PLAN: I have discussed at great length the patient's poor prognosis as has the emergency room. I di d provide options for the family including no intervention versus placement emergently of an EVD. Th e patient's daughter states that she would like to have a fighting chance of life and therefore they have asked us to proceed with placement of the EVD. We will proceed with placement of this in the U. We will elevate her head of bed 30 degrees at all times, repeat head CT for tomorrow. Risks and benefits of an EVD placement were discussed in great length with the patient's daughter as well as wi th her son on the telephone. Again, they both agreed that proceeding with EVD as the next step the m other would like us to take and we will therefore proceed with this. Ample opportunity was given to the patient's family to discuss her questions and concerns they understand that again the patient's p rognosis remains poor even with placement of EVD.
[2017-05-10 07:53] LABS: O2 Tension (PaO2) 119.8 mmHg (80.0-100.0); pH, Arterial 7.44 (7.35-7.45)
[2017-05-10 07:54] LABS: Actual Bicarbonate (HCO3a) 21.2 mEq/L (22-26); Base Excess (BEa) -2.5 mEq/L (0 (+/-) 2.5); Calcium, Ionized 1.2 mmol/L (1.12-1.30); Carboxyhemoglobin (COHb) 1.1 gm% (0.0-3.0); Hematocrit-ABG 32.3 % (36.0-47.0); Hemoglobin (Hb) 9.1 g/dL (12.0-16.0); Potassium - ABG Lab 3.7 mmol/L (3.70-5.30); Puncture Site RRA
[2017-05-10] MEDS: Sodium Chloride 0.9% 1,000 ML IV SCH ×2 (09:09→20:18)
--- NOTE | 2017-05-10 10:37 | PRG ---
DATE OF SERVICE: 05/10/2017 This is a 30 minute initial hospital visit note in which 30 minutes were spent in review the imaging, record, evaluation and examination of the patient, and formulation of a plan. Greater than 50% of t he time was spent in counseling on Shira Reid. CHIEF COMPLAINT: Left thalamic hypertensive hemorrhage with intraventricular extension and obstructi ve hydrocephalus. I reviewed the notes of my colleague Avery Bocanegra PA-C, and agree with its cont ent. Ms. Reid is a very pleasant 72-year-old woman with a history of hypertension. She had systol ics over 220 on presentation this evening. She sustained a left thalamic hemorrhage with intraventri cular extension and obstructive hydrocephalus. She was noted to be a GCS 3T. I reviewed her images and our team discussed with the family placement of an external ventricular drain. Goals, indication s, risks, alternatives and complications were discussed in detail with the patient's family. They un derstand the risks are up to including, but not limited to wound healing issues such as infection, bl eeding, CSF leak. The risk of progression of hemorrhage and hydrocephalus. They understand these ri sks and they also understand there is potential for need for shunt in the future. Basically, the soha in is being placed to treat hydrocephalus. We will work to control her blood pressures. DIAGNOSES: Hypertensive hemorrhage in the left thalamus with intraventricular extension and obstruct abelardo hydrocephalus.
--- NOTE | 2017-05-10 10:39 | PRG ---
DATE OF SERVICE: 05/10/2017 Ms. Reid is hospital day 1 following placement of right frontal external ventricular drain. Her in tracranial pressures have been in the 5-6 mmHg range with excellent waveform. Neurologically, she is improved. She prefers to keep her eyes closed. Her left pupil is 4 mm and nonreactive, right pupil is 3 mm and nonreactive. She has brisk corneal responses and a positive gag. She localizes in both upper extremities and left lower extremity and withdraws in the right lower extremity. We will cont inue to have her drain open at 10 cm of water. DIAGNOSIS: Hydrocephalus.
--- NOTE | 2017-05-10 11:10 | OP ---
DATE OF PROCEDURE: 05/10/2017 SURGEON: Arnulfo Covington M.D. CALL OR CONTACT CENTRE OPERATOR: Avery Bocanegra PA-C OPERATIVE PROCEDURE: Placement of right frontal external ventricular drain via twist drill. PREPROCEDURE DIAGNOSIS: Obstructive hydrocephalus. POSTPROCEDURE DIAGNOSES: Obstructive hydrocephalus. DESCRIPTION OF PROCEDURE: After informed consent was obtained from the patient, informed consent was obtained. Right frontal Elbert's region was identified and prepped. Proper patient pause and ident ification was carried out. A small incision was made. The drill brought into the field, the skull p erforated. The dura opened, external ventricular catheter was placed without difficulty into the abdulkadir tricle with release of bloody CSF. This was connected to the Live drain system and opened at 10 cm of water. We released approximately 20-25 mL of CSF resulting in neurological improvement in the pa tient.
--- NOTE | 2017-05-10 14:21 | CON ---
DATE OF CONSULTATION: 05/10/2017 ADMITTING PHYSICIAN: Dr. Covington. CONSULTING PHYSICIAN: Dr. Capo Coombs. HISTORY OF PRESENT ILLNESS: The patient is a 72-year-old female well known to me. She has a known h istory of type 2 diabetes mellitus, hypertension, history of multiple TIAs of unknown etiology and de mentia. She was in her normal state of health and apparently she was found down in her apartment are a. She was brought to the emergency room via 911. She was intubated at that time, found to have an intracerebral hemorrhage of thalamic bleed. She has been intubated. She has undergone operative pro cedure for placement of a ventricular drain for obstructive hydrocephalus due to her thalamic bleed. As noted, this patient is well known to me. She has had multiple admissions over the last several ye ars related to altered mental status of unknown etiology as well as multiple TIAs, all of which have revealed no evidence of any etiology. She has chronic hyponatremia upon admissions that seems to imp rove with treatment. She runs chronic hyponatremia in my office as well. She has a known history of type 2 diabetes mellitus and hypertension. She has had no prior history of coronary artery disease. No prior history of cerebrovascular disease. ALLERGIES: She is allergic to SULFA. CURRENT MEDICATIONS: Include Keppra, metformin, metoprolol and Lialda. PAST SURGICAL HISTORY: Positive for multiple neck surgery, cholecystectomy, vein stripping, bilatera l cataract surgery and tubal ligation. SOCIAL AND PERSONAL HISTORY: She has recently moved to [facility]. She does report that has been so me multiple episodes of confusion at times; however, family reports over the last several months she has been doing quite well. Social and personal is also significant for passing of her brant krause years ago, which has exacerbated some of her mental confusion. PHYSICAL EXAMINATION: GENERAL: She is currently intubated. She does not respond to verbal stimuli. She does respond to w ithdrawal of pain. VITAL SIGNS: Temperature is 100 degrees, respirations 14, BP 134/84, pulse 110 and O2 sat is 100%. LUNGS: Clear. HEART: Reveals a regular rate and rhythm with a soft systolic murmur. ABDOMEN: Soft and nontender. The bowel sounds are active. There is no hepatosplenomegaly noted. T here is no rebound or guarding. EXTREMITIES: No clubbing, edema or cyanosis. LABORATORY DATA: Her white blood count is 11.9, hemoglobin 9.8 and hematocrit 30.1. Chemistry: Sod ium 131, potassium 3.9, chloride 100, CO2 of 22, BUN 18 and creatinine 1.48. IMPRESSION: This is a 72-year-old female with; 1. Intracerebral hemorrhage, thalamic bleed. 2. Prior history of type 2 diabetes mellitus. 3. Hypertension. The patient was hypertensive upon admission. 4. Dementia. PLAN: I have been consulted for medical care. She is currently intubated. Dr. [facility] was consulted as well. She has been placed in hyperglycemia protocol with sliding scale insulin as well as Accu-Cheks. I have discussed the findings with the family. I will keep the other specialties upd ated as to her baseline status.
[2017-05-10] MEDS: Propofol 1,000 MG/100 ML VIAL IV PRN (14:48)
[2017-05-10] MEDS ORDERED: Dextrose 5% in Water 1,000 ML IV PRN (18:21)
[2017-05-10] MEDS ORDERED: Dextrose 50% Abboject 50 ML SYRINGE IVP PRN (18:21)
[2017-05-10] MEDS: Insulin Regular 300 UNITS/3 ML VIAL SC PRN (18:30)
--- NOTE | 2017-05-10 19:53 | CON ---
DATE OF CONSULTATION: 05/10/2017 HISTORY OF PRESENT ILLNESS: Ms. Reid is a 72-year-old female, who has been dealing with dementia p er my discussion with the son. She presented with parenchymal brain hemorrhage. Ventricular drain has been placed. He has also been seen by Dr. Coombs, her primary care physician. According to , she was gettin g to a point where she was starting to have some good days and some really bad days from the [facility] nt of orientation. PAST MEDICAL HISTORY: 1. Remarkable for seizure disorder. 2. Dementia. 3. History of transient ischemic attacks. 4. History of neck surgery in the past. 5. History of cholecystectomy. 6. History of vein stripping. 7. History of cataract surgeries. 8. History of tubal ligation. 9. History of hyponatremia. 10. History type 2 diabetes. 11. History of hypertension. SOCIAL HISTORY: She is a nonsmoker, nondrinker. She has no drug use history. ALLERGIES: She reports allergies to SULFA. MEDICATIONS: Prior to admission, she was on Keppra, metformin, metoprolol, and Lialda. SOCIAL HISTORY: She is , very supportive son and the [id number], there is also a kaylee r, her son lives in [place], works for [employer] as a director facilities maintenance. He is a very b alanced grasp of his mom's care issues in my opinion. PHYSICAL EXAMINATION: VITAL SIGNS: Heart rate 103, respiratory rate is 14, blood pressure 129/68. Oximetry is 100%. GENERAL: She has a bandage on top of her right scalp. HEENT: Pupils are slightly asymmetrical and the left pupil slightly larger than the right. They do not react briskly. She does blink, she does have a gag. NECK: Supple. She is orally intubated. LUNGS: Clear. HEART: Regular rhythm. S1 and S2 are normal. ABDOMEN: Soft and nontender. No mass or organomegaly. EXTREMITIES: Without clubbing, cyanosis, or edema. Her right toe is upgoing, left toe is mid positi on. IMPRESSION: 1. Parenchymal brain hemorrhage status post placement of ventriculostomy. 2. Dementia, likely vascular in progressive. I discussed do not resuscitate status with the son. I also discussed setting some boundaries of care about how aggressive we are going to be since she is dealing with declining mental health. He is very receptive to this discussion and discussed with his sister and his . She at least at this point in time appears to be stable. LABORATORY AND X-RAY FINDINGS: Lab work has been reviewed. White count 11.9, hemoglobin 9.8, platel ets 371. Sodium 131, potassium 3.9, chloride 100, bicarbonate 22, BUN 18, creatinine 1.48, pH 7.44, CO2 of 32, pO2 of 119. OTHER ISSUES: Include 1. Diabetes. 2. Hypertension is well controlled. 3. Acute on chronic kidney dysfunction. 4. Anemia with a normal mean corpuscular volume ? of chronic disease. 5. Chronic mild hyponatremia. 6. Hyperglobulinemia. Certainly we need to workup for myeloma at this point. I will be happy to follow with ER physicians, I have explained to the family that she is not weanable until neurological status improves. I am not sure I would proceed down the path for tracheostomy or even a PEG unless family decides that they want to go this route. My initial impression is they gaye l not. Serial exams will help us guide them better. I would not anticipate that she would improve q hailee. Critical care time 35 minutes.
[2017-05-10] MEDS: Famotidine/PF 20 mg/2ml Vial SLOW IVP SCH (20:19)
[2017-05-11] MEDS: Propofol 1,000 MG/100 ML VIAL IV PRN ×2 (04:17→16:11)
[2017-05-11] MEDS: CEFAZOLIN 1 GM, Syringe 2.5 ML in Sterile Water 7.5 ML SLOW IVP SCH ×3 (05:46→21:39)
[2017-05-11] MEDS: Insulin Regular 300 UNITS/3 ML VIAL SC PRN ×3 (05:55→21:52)
[2017-05-11 07:44] LABS: CO2 Tension 32.6 mmHg (35.0-45.0); O2 Tension (PaO2) 91.4 mmHg (80.0-100.0); pH, Arterial 7.42 (7.35-7.45)
--- NOTE | 2017-05-11 07:44 | RAD ---
SINGLE VIEW CHEST: Date: 05/11/17 COMPARISON: 03/10/17. HISTORY: Ventilated patient with respiratory failure. FINDINGS: Single view of the chest shows a cardiomediastinal silhouette which is upper limits of normal in size . An endotracheal tube is seen with its tip between the clavicles. A NG tube courses off the inferior aspect of the film. Linear opacity in the left lung base may represent atelectasis. No pleural effus ion is seen. IMPRESSION: Left lower lobe atelectasis. POS: OFF
[2017-05-11 07:45] LABS: Actual Bicarbonate (HCO3a) 20.6 mEq/L (22-26); Base Excess (BEa) -3.4 mEq/L (0 (+/-) 2.5)
[2017-05-11 07:47] LABS: Hematocrit-ABG 26.9 % (36.0-47.0)
[2017-05-11 07:48] LABS: Carboxyhemoglobin (COHb) 1.1 gm% (0.0-3.0); Hemoglobin (Hb) 8.1 g/dL (12.0-16.0); Puncture Site LRA
--- NOTE | 2017-05-11 08:07 | PRG ---
DATE OF SERVICE: 05/11/2017 SUBJECTIVE: Ms. Reid at least opens her eyes today. She is still not following commands. She salmeron s have spontaneous movement of her left leg and left hand. OBJECTIVE: VITAL SIGNS: BP 132/64, pulse 84, O2 sats 100% and she is still intubated. Blood sugars are under b juan control. LUNGS: Clear. HEART: Reveals no murmur. ABDOMEN: Soft. NEUROLOGIC: As noted, she does spontaneously move her left leg. She does not seem to follow verbal commands. IMPRESSION: 1. Intracerebral bleed, thalamic bleed. 2. Hypertension, controlled. 3. Type 2 diabetes mellitus, controlled. PLAN: Continue observation and medical management per Neurosurgery and ventilator management per Pul monary.
[2017-05-11] MEDS: Sodium Chloride 0.9% 1,000 ML IV SCH ×2 (08:51→21:42)
[2017-05-11] MEDS: niCARdipine HCl 25 MG in Sodium Chloride 0.9% 250 ML 240 ML IVPB PRN ×2 (10:25→20:06)
--- NOTE | 2017-05-11 12:16 | PRG ---
DATE OF SERVICE: 05/11/2017 SUBJECTIVE: Franklin appears to be moving her left side more today. OBJECTIVE: VITAL SIGNS: She is 130/72, heart rate 111, respiratory rate 15, oximetry is 100%. HEENT: Pupils react. Sclerae is anicteric. NECK: Supple. LUNGS: Clear. HEART: Regular rhythm. S1 and S2 are normal. ABDOMEN: Soft. EXTREMITIES: Without asymmetry. NEUROLOGIC: She is moving her left side. She is flaccid on her right. LABORATORY DATA: There is no lab today. IMPRESSION: 1. Respiratory failure associated with cerebrovascular accident. 2. Chronic kidney disease. She needs lab on a daily basis for now. 3. Borderline hyponatremia. 4. Diabetes. 5. Pre-existing dementia. PLAN: Continue supportive care. He is not a candidate for weaning or extubation at this time. She needs to start on some tube feeds. The family never made a decision regarding [id number] sta tus from what I can tell. I had a long meeting with them yesterday. Critical care time was 30 minutes.
--- NOTE | 2017-05-11 13:33 | PRG ---
DATE OF SERVICE: 05/11/2017 Ms. Reid is hospital day 2 following placement for a right-sided external ventricular drain for obs tructive hydrocephalus due to left thalamic hemorrhage with intraventricular extension and rapid neur ological decline. She is doing well, starting to open her eyes up spontaneously, although she has a mildly disconjugate gaze likely due to her thalamic hemorrhage. She has had bloody CSF output approx imately 10 mL per hour with intracranial pressures in the 5-8 mmHg range when her pressures have been assessed. She certainly has improved since placement of the external ventricular drain. On exam, s he localizes in the left upper extremity and left lower extremity with we could draw in the right upp er extremity and right lower extremity. I think the plan this weekend will be simply to continue to drain her and attempt weaning of her drai n early next week.
[2017-05-11] MEDS: Fentanyl 100 MCG/2 ML VIAL SLOW IVP PRN (18:37)
[2017-05-11] MEDS: Famotidine/PF 20 mg/2ml Vial SLOW IVP SCH (20:08)
[2017-05-12] MEDS: Propofol 1,000 MG/100 ML VIAL IV PRN ×2 (02:44→06:30)
[2017-05-12] MEDS: Insulin Regular 300 UNITS/3 ML VIAL SC PRN ×2 (04:28→21:26)
[2017-05-12 04:34] LABS: Anion Gap 10 mmol/L (10-20); BUN (Urea Nitrogen) 17 mg/dL (9.8-20.1); Calc. Creatinine Clearance 45 mL/min (70-130); Carbon Dioxide 18 mmol/L (23-31); Chloride 112 mmol/L (98-107); Estimated GFR-MDRD 43; Glucose 154 mg/dL (83-110); Potassium 3.3 mmol/L (3.5-5.1); Sodium 137 mmol/L (136-145)
[2017-05-12 04:40] LABS: Band 1 % (5-11); Eosinophils 1 % (0-10); Hypochromia SLIGHT = 6-15 cells (100X) (0-5/hpf); Lymphocytes 17 % (21-51); MDiff Complete? YES; Mean Corpuscular HGB CONC 27.9 g/dL (32.0-36.0); Mean Corpuscular Hemoglobin 24.4 pg (27.0-31.0); Mean Corpuscular Volume 87.3 fl (81.0-99.0); Mean Platelet Volume 6.4 fL (7.4-10.4); Monocytes 13 % (0-10); Neutrophil 68 % (42-75); PLT Morphology Comment Appears Adequate; Platelet Count 260 thou/uL (130-400); RBC Distribution Width 13.1 % (11.5-14.5); Red Blood Cell (RBC) Count 3.68 mill/uL (4.20-5.40); White Blood Cell (WBC) Count 7.7 thou/uL (4.8-10.8)
[2017-05-12] MEDS: CEFAZOLIN 1 GM, Syringe 2.5 ML in Sterile Water 7.5 ML SLOW IVP SCH ×3 (06:25→21:21)
[2017-05-12] MEDS: niCARdipine HCl 25 MG in Sodium Chloride 0.9% 250 ML 240 ML IVPB PRN ×2 (06:29→22:35)
[2017-05-12 07:47] LABS: Actual Bicarbonate (HCO3a) 19.9 mEq/L (22-26); Base Excess (BEa) -3.8 mEq/L (0 (+/-) 2.5); CO2 Tension 30.3 mmHg (35.0-45.0); Hemoglobin (Hb) 8.1 g/dL (12.0-16.0); pH, Arterial 7.43 (7.35-7.45)
[2017-05-12 07:48] LABS: ALV-art Gradient 88.025 (0-20); Calcium, Ionized 1.2 mmol/L (1.12-1.30); Potassium - ABG Lab 2.9 mmol/L (3.70-5.30); Puncture Site RBA
[2017-05-12] MEDS ORDERED: CCU Electrolyte Replacement 1 EACH FS SCH (08:10)
--- NOTE | 2017-05-12 08:12 | PRG ---
DATE OF SERVICE: 05/12/2017 This is Neurosurgery ICU progress note. SUBJECTIVE: I saw Ms. Reid in her ICU room this morning. Her vital signs look stable to me. She is on a propofol drip as I examined her. Nursing does not report any events overnight. Even on the propofol drip with some stimulation she opens her eyes. She localizes with left upper ex tremity, the right side is not moving. The EVD is working appropriately. This weekend, we will keep the EVD open at 10 cm of water. I expect more bloody CSF to come out over time as the clot slowly dissolves. We will get an ultrasound of the lower extremities to monitor fo r DVT. She will need occupational, speech and physical therapy and most likely chcf place ment.
[2017-05-12] MEDS ORDERED: Potassium Phosphate 12 MMOL in Sodium Chloride 0.9% 250 ML 250 ML IV PRN (08:16)
[2017-05-12] MEDS ORDERED: Potassium Phosphate 15 MMOL in Sodium Chloride 0.9% 250 ML 250 ML IV PRN (08:16)
[2017-05-12] MEDS ORDERED: Potassium Chloride 40 MEQ in Sodium Chloride 0.9% 250 ML 250 ML IVPB PRN (08:16)
[2017-05-12] MEDS ORDERED: Magnesium Oxide 400 MG TAB PO PRN ×2 (08:16)
[2017-05-12] MEDS ORDERED: Potassium Chloride 40 MEQ in Premix Bag 1 BAG IVPB PRN (08:16)
[2017-05-12] MEDS ORDERED: Potassium Phosphate 9 MMOL in Sodium Chloride 0.9% 100 ML IVPB PRN (08:16)
[2017-05-12] MEDS ORDERED: CCU ELECTROLYTE REPLACEMENT PROTOCOL FS PRN (08:16)
[2017-05-12] MEDS ORDERED: Magnesium 2 GM/NS 0.9% 100 ML 2 GM in Premix Bag 1 BAG IVPB PRN (08:16)
[2017-05-12] MEDS ORDERED: Potassium Chloride 20 MEQ TAB PO PRN (08:16)
--- NOTE | 2017-05-12 08:44 | PRG ---
DATE OF SERVICE: 05/12/2017 A 35 minutes critical care time SUBJECTIVE: The patient remains intubated on mechanical ventilation. OBJECTIVE: VITAL SIGNS: Temperature is 99.1, pulse 102, blood pressure 129/73. A 24-hour intake is 3846, outpu t 2290. NEUROLOGICAL: She is hemiparetic on the right side. She withdraws to the left. She has an upgoing toe on the right side. HEENT: Pupils are reactive. Eyes are not deviated. She has a bandage around her head. She has an oral endotracheal tube in place. NECK: No JVD, no bruits, no thyromegaly. LUNGS: Clear to auscultation anteriorly. CARDIOVASCULAR: S1 and S2 regular, without murmur. ABDOMEN: Soft and nontender. She is tolerating tube feeds. EXTREMITIES: No clubbing, cyanosis, or edema, no skin lesions. LABORATORY DATA AND X-RAY FINDINGS: White blood cell count 7.7, hematocrit 32.1, platelet count 260, pH 7.43, PCO2 30, PO2 88 on SIMV rate 14, tidal volume 450, PEEP 5, pressure support 10, FiO2 30%. Sodium 137, potassium 3.3, chloride 112, CO2 18, BUN 17, creatinine 1.2, glucose 154. Chest x-ray sh owed no acute mass, effusion or infiltrate. ASSESSMENT: 1. Acute respiratory failure secondary to the effects of intracranial bleed. 2. Chronic kidney disease. 3. Hypokalemia. 4. Diabetes. 5. Preexisting dementia. PLAN: So far, neurologic recovery seems far off. I do not think she can maintain her airway if extu bated at this time. We will continue blood pressure control with nicardipine. We will replace her p otassium. I will go ahead and culture her for the fever, I think the fever is probably central in or igin. She is remaining on tube feeds.
[2017-05-12] MEDS: Acetaminophen 325 MG TAB PO PRN (08:48)
--- NOTE | 2017-05-12 09:20 | ULT ---
BILATERAL LOWER EXTREMITY VENOUS DOPPLER ULTRASOUND: Date: 05/12/17 HISTORY: CVA, immobility, bilateral lower extremity edema. TECHNIQUE: Roman scale ultrasound with color flow and spectral Doppler imaging of the deep venous systems of the lower extremities was performed bilaterally. FINDINGS: There is good flow, compression, and augmentation noted in the common femoral, femoral, deep femoral, popliteal, posterior tibial, and greater saphenous veins on either side. IMPRESSION: No evidence of deep venous thrombosis in either lower extremity. POS: JALIL
--- NOTE | 2017-05-12 09:37 | PRG ---
DATE OF SERVICE: 05/12/2017 SUBJECTIVE: Ms. Reid is a 72-year-old female, who has a left thalamic hypertensive bleed with intr aventricular hemorrhage and HCP. Her exam is somewhat improved after an EVD was placed. She is able to localize with the left arm and she withdraws with the right arm to pain. This morning, she is st ill on a low-dose Cardene drip, as blood pressure parameters for systolic blood pressure set for 140. We will continue to leave the EVD open at 10 cm of water over the weekend, and we will try to wean her early next week. It was noted that ICPs go much higher when the patient is stimulated, which is expected. OBJECTIVE: Overnight, her vital signs have been stable. LABORATORY DATA: This morning, her hemoglobin is 9, hematocrit is 32.1. She has a blood glucose of 153 this morning. We will continue to watch her over the weekend with doing neurologic checks. If there are further qu estions, please feel free to contact Neurosurgery.
--- NOTE | 2017-05-12 11:18 | RAD ---
PORTABLE CHEST 1 VIEW: Date: 05/12/17 Time: 0550 hours HISTORY: Respiratory failure. FINDINGS/IMPRESSION: No significant interval change is seen since the previous day's exam. POS: JALIL
[2017-05-12] MEDS: Sodium Chloride 0.9% 1,000 ML IV SCH (13:07)
[2017-05-12] MEDS: Famotidine/PF 20 mg/2ml Vial SLOW IVP SCH (21:21)
--- NOTE | 2017-05-12 23:55 | PRG ---
DATE OF SERVICE: 05/12/2017 HISTORY OF PRESENT ILLNESS: The patient remains intubated and sedated, continues on Cardene drip for blood pressure control on propofol for sedation, has ventricular drain in place. His glucerna tube feeds running without difficulties per nursing staff. Plasencia catheter in place. The patient is nonverbal at time of exam, intubated and sedated. No communication. The patient did move left upper and bilateral lower extremities with light stimuli. VITAL SIGNS: Include temperature of 100.1, heart rate of 98, blood pressure 150 /65, oxygen saturation 100% on ventilator. LABORATORY: Include hemoglobin 9.0, platelet count of 260, bicarbonate of 19.9 , pO2 of 88%. Blood gas glucose last 12 hours, 153 range to 189. Potassium of 3.3, creatinine of 1.24. Repeat chest x-ray without acute changes, stable tube placements. Venogram of lower extremities without DVTs bilaterally. PHYSICAL EXAMINATION: GENERAL: The patient is intubated and sedated. ET tube and OG tube in place. HEART: Regular rate and rhythm at time of exam. LUNGS: Coarse lung sounds bilaterally. ABDOMEN: Soft, positive bowel sounds throughout. Plasencia catheter in place. EXTREMITIES: No lower extremity edema. Capillary refill intact bilateral lower extremities as above. The patient moved left upper and bilateral lower extremities with light stimulus at the time of exam was not following commands, however. ASSESSMENT AND PLAN: Acute respiratory failure secondary to intracranial bleed , hypokalemia, diabetes, CKD, hypertension. At this time, patient's blood glucoses are stable. Potassium is being replaced. Patient has had ventricular drain placed by Neurosurgery. No plans to remove during the weekend. Will follow up on repeat CT later this week as per surgery recommendations. Pulmonology does not feel patient is stable enough for extubation. Blood pressures remain controlled per protocol on IV drip. We will continue to follow inpatient, covering for Dr. Capo Coombs. J[facility] MEDICAL CENTERCarolynn
[2017-05-13] MEDS: Sodium Chloride 0.9% 1,000 ML IV SCH ×3 (00:05→21:18)
[2017-05-13] MEDS: niCARdipine HCl 25 MG in Sodium Chloride 0.9% 250 ML 240 ML IVPB PRN ×3 (04:51→20:45)
[2017-05-13] MEDS: CEFAZOLIN 1 GM, Syringe 2.5 ML in Sterile Water 7.5 ML SLOW IVP SCH ×3 (05:06→21:17)
[2017-05-13 05:56] LABS: Anion Gap 9 mmol/L (10-20); BUN (Urea Nitrogen) 23 mg/dL (9.8-20.1); Calc. Creatinine Clearance 48 mL/min (70-130); Calcium 8.1 mg/dL (7.8-10.44); Carbon Dioxide 22 mmol/L (23-31); Chloride 110 mmol/L (98-107); Estimated GFR-MDRD 43; Glucose 142 mg/dL (83-110); Potassium 3.3 mmol/L (3.5-5.1); Sodium 138 mmol/L (136-145)
[2017-05-13 06:23] LABS: Band 9 % (5-11); Eosinophils 7 % (0-10); Hemoglobin 8.8 g/dL (12.0-16.0); Lymphocytes 15 % (21-51); MDiff Complete? YES; Mean Corpuscular HGB CONC 31.8 g/dL (32.0-36.0); Mean Corpuscular Hemoglobin 28.4 pg (27.0-31.0); Mean Corpuscular Volume 89.2 fl (81.0-99.0); Mean Platelet Volume 6.5 fL (7.4-10.4); Monocytes 12 % (0-10); Neutrophil 57 % (42-75); PLT Morphology Comment Appears Adequate; Platelet Count 306 thou/uL (130-400); Red Blood Cell (RBC) Count 3.09 mill/uL (4.20-5.40); White Blood Cell (WBC) Count 9.1 thou/uL (4.8-10.8)
[2017-05-13 08:08] LABS: Actual Bicarbonate (HCO3a) 18.1 mEq/L (22-26); Base Excess (BEa) -5.7 mEq/L (0 (+/-) 2.5); CO2 Tension 28.5 mmHg (35.0-45.0); Hematocrit-ABG 24.2 % (36.0-47.0); Hemoglobin (Hb) 7.1 g/dL (12.0-16.0); O2 Tension (PaO2) 81.5 mmHg (80.0-100.0); pH, Arterial 7.42 (7.35-7.45)
[2017-05-13 08:09] LABS: Calcium, Ionized 1.2 mmol/L (1.12-1.30); Carboxyhemoglobin (COHb) 1.1 gm% (0.0-3.0); Puncture Site RRA
[2017-05-13 08:10] LABS: ALV-art Gradient 96.775 (0-20)
--- NOTE | 2017-05-13 08:38 | PRG ---
DATE OF SERVICE: 05/13/2017 Ms. Reid is a 72-year-old female that I saw in her room this morning. Her exam has not really pitts ged since yesterday. Overnight, there have been no acute events. Her vital signs have been stable. ICPs have been ranging between 6 and 10 over the past 12 hours. She has been putting out between 8 and 10 mL of CSF per hour. On physical exam, Ms. Reid continues to withdraw to pain on the right u pper extremity and right lower extremity; however, in the left upper extremity, she localizes the theo n and she moves the left lower extremity spontaneously. This morning, she has her eyes open. Her pu pils are equal and reactive to light. She does not follow my commands when doing a cranial nerve gerry t; however, when I asked her to give me a thumbs up on the left, she is able to follow commands. She is unable to follow that command on the right upper extremity. Venogram was done yesterday that debby ws no evidence of deep vein thrombosis bilaterally in the lower extremities. Chest x-ray also was do ne yesterday that showed no significant interval change since previous day's exam. We will continue to watch Ms. Reid in the ICU with her EVD in place, open at 10 cm of water. This morning, there is still bloody CSF that has come out, but as the clot slowly dissolves I would expect it to continue t o be bloody. Patient will likely need occupational, speech therapy, physical therapy, and skilled nu rsing placement. If there are any further questions, please feel free to contact Neurosurgery.
[2017-05-13] MEDS: Scopolamine 1.5 mg/72 hour Patch TD SCH (08:49)
--- NOTE | 2017-05-13 08:52 | RAD ---
PORTABLE CHEST 1 VIEW: Date: 05/13/17 Time: 0516 hours HISTORY: Respiratory failure. FINDINGS/IMPRESSION: Comparison made with exam from previous day. Endotracheal and nasogastric tubes remain in place. The heart size is upper limits of normal. Atelect atic changes in the left lung base. No pneumothoraces or effusions are identified. POS: [facility]
--- NOTE | 2017-05-13 08:56 | PRG ---
DATE OF SERVICE: 05/13/2017 Thirty-five minutes critical care time. SUBJECTIVE: The patient remains intubated on mechanical ventilation. Today, she is arousable. She is able to follow commands with her left side, but her right side is hemiparetic. OBJECTIVE: VITAL SIGNS: Temperature 99.6, pulse 84, blood pressure 134/54. She had a T-max of 100.6 last night . A 24-hour intake is 4149 and output 2806. HEENT: Pupils react. Sclerae are anicteric. She is drooling from her mouth. NECK: No JVD. LUNGS: Clear anteriorly. CARDIOVASCULAR: S1 and S2 regular without murmur. ABDOMEN: Soft, nontender. EXTREMITIES: No clubbing, cyanosis, or edema. IMAGING: Chest x-ray shows no mass, effusion or infiltrate. LABORATORY DATA: White blood cell count 9.1, hematocrit 27.6, platelet count 306. PH of 7.42, pCO2 of 28, pO2 of 81 on SIMV rate 14, tidal volume 450, PEEP 5, pressure support 10, FiO2 30%. Sodium 13 8, potassium 3.3, chloride 110, CO2 of 22, BUN 23, creatinine 1.2, glucose 142. ASSESSMENT: 1. Acute respiratory failure, requiring mechanical ventilation. 2. Intracranial bleed. 3. Chronic kidney disease. 4. Hypokalemia. 5. Diabetes mellitus. 6. Pre-existing dementia. PLAN: 1. Start scopolamine patch. 2. Place on pressure support ventilation with hopes of extubating in the next 24-48 hours if we can control her airway secretions. 3. Continue enteral tube feeds. 4. Glucose control seems adequate at this time.
[2017-05-13] MEDS: Insulin Regular 300 UNITS/3 ML VIAL SC PRN ×3 (11:34→20:56)
[2017-05-13] MEDS: Propofol 1,000 MG/100 ML VIAL IV PRN (11:35)
[2017-05-13] MEDS: Acetaminophen 325 MG TAB PO PRN ×2 (14:46→21:16)
--- NOTE | 2017-05-13 16:45 | PRG ---
DATE OF SERVICE: 05/13/2017 Ms. Reid in the ICU room this morning. The family is unavailable. Nursing does not report any sig nificant events overnight. Vital signs show a fever of 101.0 degrees Fahrenheit, yesterday morning a t 8:00 a.m. On examination, Ms. Reid is more alert today. Propofol was off earlier and restarted, but unless s he opens her eyes to voice, she follows commands with the left hand. She has right hemiplegia. She has ocular motor difficulty from the mid brain extension of her thalamic hemorrhage. Ms. Reid's is working well. Plan is to continue to leave it open at 10 cm of water. Her ult rasound of her lower extremities was negative for DVT. We will continue current management until Dr. Covington's team is back tomorrow.
--- NOTE | 2017-05-13 16:59 | PRG ---
DATE OF SERVICE: 05/13/2017 HISTORY OF PRESENT ILLNESS: The patient is being weaned off propofol sedation for attempts at self-b reathing on ET tube. She has been continuing to move her left upper and lower extremities with ease. Some minor movement of right lower extremity. No movement of right upper extremity reported by [facility] staff. She has been tolerating her tube feeds. Remains on Cardene drip for blood pressure main tenance. No blood glucose problems reported. Ventricular drain continues to put out blood-tinged co ngestive heart failure fluid to satisfaction of Neurosurgery. Met with her son at bedside and answer ed all questions prior to leaving unit, who verbalized understanding. Follow up of repeat CT later t his week and possible extubation in the next 48 hours depending on the patient's progress. PHYSICAL EXAMINATION: VITAL SIGNS: Temperature of 101.0, heart rate of 106, blood pressure 131/53, oxygen saturation 92% o n ventilator. GENERAL: The patient is alert, slight withdrawal from pain, moving left upper and lower extremities. Scant toe wiggle to right lower extremity. No response in right upper extremity. Extraocular move ments appear intact, but the patient not following commands at this point in time. ET and OG tube in place. HEART: Regular rate and rhythm. LUNGS: Coarse bilateral breath sounds. ABDOMEN: Soft, positive bowel sounds throughout. EXTREMITIES: Lower extremities without cyanosis or edema. Plasencia catheter in place, soft restraints in place. LABORATORY DATA: Hemoglobin 8.8, white blood count of 9.1, platelet count of 306. Blood gas this a. m., bicarbonate 18, pH 7.4, CO2 of 28.5, PaO2 of 81.5, potassium of 3.3, creatinine of 1.2, glucose r anged 137-250 last 12 hours. Sodium 138, chloride of 110, bicarbonate 22. Urine and blood cultures grown from yesterday 24-hour read negative. Chest x-ray, this a.m., a stable exam from prior chest x -ray yesterday. ASSESSMENT AND PLAN: Intracranial bleed with placement of a ventricular drain; chronic kidney diseas e, stage 3; hypokalemia; hypertension; type 2 diabetes; acute respiratory failure; fevers, continuing current management. Agree with critical care, likely basilar stimulation of temperatures, following up on cultures, currently negative. No left shift on cell counts. No outward signs of infection on exam. Likely a repeat CT early next week with Neurosurgery for any recommendations of pulling drain timeframe. Pulmonology attempting to wean patient on sedation and extubate per their recommendation s likely in next 48 hours. Continuing tube feeds. Blood glucose is largely in range; for the first time, the patient has been above 200. We will continue to follow. No adjustments at this point in t elida. Hypokalemia, being replaced per protocol. The patient remains on Cardene drip for blood pressu re control, which remains controlled. Once patient is successfully extubated, we will need rehabilit ation evaluation. Susan Coombs should return tomorrow to resume evaluation.
[2017-05-13] MEDS: Famotidine/PF 20 mg/2ml Vial SLOW IVP SCH (21:16)
[2017-05-14] MEDS: niCARdipine HCl 25 MG in Sodium Chloride 0.9% 250 ML 240 ML IVPB PRN ×4 (01:55→21:28)
[2017-05-14] MEDS: Propofol 1,000 MG/100 ML VIAL IV PRN ×2 (03:14→18:50)
[2017-05-14 04:59] LABS: Anion Gap 10 mmol/L (10-20); BUN (Urea Nitrogen) 23 mg/dL (9.8-20.1); Calc. Creatinine Clearance 0 mL/min (70-130); Calcium 8.1 mg/dL (7.8-10.44); Carbon Dioxide 18 mmol/L (23-31); Chloride 113 mmol/L (98-107); Estimated GFR-MDRD 46; Glucose 169 mg/dL (83-110); Potassium 3.5 mmol/L (3.5-5.1); Sodium 137 mmol/L (136-145)
[2017-05-14] MEDS: CEFAZOLIN 1 GM, Syringe 2.5 ML in Sterile Water 7.5 ML SLOW IVP SCH ×3 (06:06→21:31)
[2017-05-14] MEDS: Insulin Regular 300 UNITS/3 ML VIAL SC PRN ×3 (06:06→16:19)
[2017-05-14 06:09] LABS: Band 2 % (5-11); Eosinophils 2 % (0-10); Hemoglobin 8.1 g/dL (12.0-16.0); Lymphocytes 7 % (21-51); MDiff Complete? YES; Mean Corpuscular Hemoglobin 28.3 pg (27.0-31.0); Mean Corpuscular Volume 88.3 fl (81.0-99.0); Mean Platelet Volume 6.2 fL (7.4-10.4); Monocytes 8 % (0-10); Neutrophil 80 % (42-75); PLT Morphology Comment Appears Adequate; Platelet Count 307 thou/uL (130-400); RBC Distribution Width 13.1 % (11.5-14.5); RBC Morphology Normal; Reactive Lymphocytes 1 % (0-10); Red Blood Cell (RBC) Count 2.88 mill/uL (4.20-5.40); White Blood Cell (WBC) Count 13.9 thou/uL (4.8-10.8)
[2017-05-14 08:23] LABS: Actual Bicarbonate (HCO3a) 18.5 mEq/L (22-26); Base Excess (BEa) -5.5 mEq/L (0 (+/-) 2.5); CO2 Tension 28.2 mmHg (35.0-45.0); Hematocrit-ABG 15.8 % (36.0-47.0); O2 Tension (PaO2) 78.8 mmHg (80.0-100.0); pH, Arterial 7.43 (7.35-7.45)
[2017-05-14 08:24] LABS: Analyzer IN Cardio ER; Calcium, Ionized 1.2 mmol/L (1.12-1.30); Carboxyhemoglobin (COHb) 1.2 gm% (0.0-3.0); Hemoglobin (Hb) 4.4 g/dL (12.0-16.0); Potassium - ABG Lab 3.4 mmol/L (3.70-5.30); Puncture Site RRA
--- NOTE | 2017-05-14 09:20 | RAD ---
PORTABLE CHEST: DATE: 05/14/17. PROVIDED CLINICAL HISTORY: Respiratory insufficiency. FINDINGS: COMPARISON: 05/13/17. Significant interval change with respect to the prior examination is not definitely apparen t. Areas of probable subsegmental atelectasis involve the right and left mid lung zones. IMPRESSION: As above. POS: OFF
--- NOTE | 2017-05-14 09:38 | PRG ---
DATE OF SERVICE: 05/14/2017 Ms. 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 She has continu ed to demonstrate signs of improvement. She did follow commands for the nursing team last night. Cameron rajput is sedated currently. I would like to get a head CT as her intracranial pressures have been up to 10 mmHg with various ranges of output up to 19 mL hourly. Her EVD is currently open at 10 cm of wate r. With head CT the plan is to try and begin the weaning process. I understand too that there is a plan for potential extubation in the near future.
--- NOTE | 2017-05-14 11:30 | CT ---
CT HEAD WITHOUT CONTRAST: HISTORY: Follow-up intraparenchymal hematoma. COMPARISON: 05/09/2017 TECHNIQUE: Multiple axial tomograms obtained through the head without IV enhancement. FINDINGS: A ventriculostomy catheter has been placed through the right frontal lobe since the prior study. The tip of the catheter enters the anterior horn on the right and appears to extend beyond the floor of the right lateral ventricle, in the midline. The intraventricular hematoma, in the region of the left thalamus, has minimally decreased in size, m easuring 3.1 cm in greatest dimension today, whereas it previously measured 3.9 cm. Surrounding vaso genic edema is more prominent. Intraventricular hemorrhage is again noted. Midline shift, from left to right, has increased slightly, measured at 4 to 5 mm on today's study. IMPRESSION: Slight regression of the hematoma, although increase in the surrounding vasogenic edema and slight in crease in mass effect and midline shift. POS: [facility]
[2017-05-14 13:43] VITALS: BMI 29.5
[2017-05-14] MEDS: Sodium Chloride 0.9% 1,000 ML IV SCH (15:05)
--- NOTE | 2017-05-14 16:12 | PRG ---
DATE OF SERVICE: 05/14/2017 SUBJECTIVE: Ms. Reid is following commands and now making eye contact, but she is still densely he miplegic. OBJECTIVE: VITAL SIGNS: Heart rate is 102, blood pressure 118/53, respiratory rate 16, oximetry is 97%. LUNGS: Clear. CARDIOVASCULAR: Regular rhythm. S1 and S2 are normal. ABDOMEN: Soft and nontender. EXTREMITIES: Without clubbing, cyanosis, or edema. IMAGING: Chest radiograph, reviewed by me today, shows some patchy atelectasis on the right. Her x- ray compared to yesterday is unchanged. CT of her head done today shows a decrease in edema and regression of the hematoma. She still has a mass effect and midline shift. IMPRESSION: 1. Parenchymal brain hemorrhage. 2. Respiratory failure. So, I explained to the son it is unclear whether or not she would be able to protect airway. Asked h im to contemplate whether or not she would want a tracheostomy. She is down to a minimum of ventilatory support at this point in time. We may be able to consider ex tubation tomorrow depending on how she does overnight, but I would prefer that we have these question s answered before we extubate her. I answered all of their questions. Critical care time was 30 minutes.
--- NOTE | 2017-05-14 19:18 | PRG ---
DATE OF SERVICE: 05/14/2017 SUBJECTIVE: The patient continues to have attempted to be weaned, still producing thick secretions, off ventilator, tolerating tube feeds well. Plasencia catheter in place. Family at bedside at lunch. A nswered all questions prior to leaving bedside. They do report she has a history of chronic UTIs and was on prophylactic antibiotics previously for control of them. Nursing staff reports good CT with pressure setting recommendations from neurosurgery given for drain output in ventricles. Pulmonology potentially talking about attempted extubation tomorrow if everything goes well. The patient unable to answer formal review of systems or questioning, following commands today, moving left upper and l ower extremity. Right lower extremity toes minimally. No right upper extremity movement. OBJECTIVE: VITAL SIGNS: Temperature of 99.5, respiratory rate of 18, heart rate of 85, oxygen saturation 97%, o n ventilator. GENERAL: The patient is alert and ventricular drain in place. ET tube and OG tube are in place. NECK: Supple. The patient is unable to move her head around freely. HEART: Regular rate and rhythm. LUNGS: Coarse to auscultation bilaterally. ABDOMEN: Soft, nontender, positive bowel sounds throughout. EXTREMITIES: Lower extremities with mild nonpitting edema. The patient moving left upper and lower extremity on command, moving right toes on command, not able to move right upper extremity. NEUROLOGIC: Pupils equal, round, reactive, accommodate to light on neuro check. Plasencia catheter in p lace. LABORATORY DATA: White blood cell count increased to 13.9, hemoglobin 8.1 neutrophilic percent 80. Potassium of 3.5, sodium 137, CO2 of 18, creatinine of 1.1, glucose range 161-181 in the last 12 hour s. Blood culture no growth at 48 hours. Urine culture gram negative urbin 5000 CFU. ASSESSMENT AND PLAN: Intracranial bleed disease, chronic kidney disease stage 2, diabetes type 2, ac pamunkey respiratory failure, fever. Following up on Neurosurgery and Pulmonology recommendations regardi ng management of bleeding and ventilator settings. Blood sugars currently controlled. Continuing tu be feeds. Regarding fever, may ask microbiology to trend out low colony forming unit as differential for fever cause. Urine remains clear, however. We will continue to follow and reassess for signs a nd symptoms of infection. Filling in for Dr. Capo Coombs, who possibly will return tomorrow.
[2017-05-14] MEDS: Famotidine/PF 20 mg/2ml Vial SLOW IVP SCH (20:39)
[2017-05-15] MEDS: Insulin Regular 300 UNITS/3 ML VIAL SC PRN ×3 (00:31→21:04)
[2017-05-15] MEDS: niCARdipine HCl 25 MG in Sodium Chloride 0.9% 250 ML 240 ML IVPB PRN (02:31)
[2017-05-15] MEDS: Sodium Chloride 0.9% 1,000 ML IV SCH ×2 (06:02→14:27)
[2017-05-15] MEDS: CEFAZOLIN 1 GM, Syringe 2.5 ML in Sterile Water 7.5 ML SLOW IVP SCH ×2 (06:03→14:25)
[2017-05-15 06:47] LABS: Band 3 % (5-11); Eosinophils 10 % (0-10); Hemoglobin 8.3 g/dL (12.0-16.0); Lymphocytes 9 % (21-51); MDiff Complete? YES; Mean Corpuscular HGB CONC 31.3 g/dL (32.0-36.0); Mean Corpuscular Hemoglobin 27.7 pg (27.0-31.0); Mean Corpuscular Volume 88.4 fl (81.0-99.0); Mean Platelet Volume 6.3 fL (7.4-10.4); Monocytes 7 % (0-10); Neutrophil 70 % (42-75); PLT Morphology Comment Appears Adequate; Platelet Count 336 thou/uL (130-400); White Blood Cell (WBC) Count 10.1 thou/uL (4.8-10.8)
[2017-05-15 06:55] LABS: Anion Gap 11 mmol/L (10-20); BUN (Urea Nitrogen) 19 mg/dL (9.8-20.1); Calc. Creatinine Clearance 50 mL/min (70-130); Calcium 8.2 mg/dL (7.8-10.44); Carbon Dioxide 19 mmol/L (23-31); Chloride 113 mmol/L (98-107); Estimated GFR-MDRD 44; Glucose 145 mg/dL (83-110); Potassium 3.7 mmol/L (3.5-5.1); Sodium 139 mmol/L (136-145)
[2017-05-15] MEDS: niCARdipine HCl 50 MG in Sodium Chloride 0.9% 250 ML 230 ML IVPB PRN ×2 (07:37→18:27)
[2017-05-15 08:00] LABS: Actual Bicarbonate (HCO3a) 17.8 mEq/L (22-26); Base Excess (BEa) -5.7 mEq/L (0 (+/-) 2.5); CO2 Tension 27.4 mmHg (35.0-45.0); Calcium, Ionized 1.2 mmol/L (1.12-1.30); Hematocrit-ABG 24.2 % (36.0-47.0); Hemoglobin (Hb) 7.7 g/dL (12.0-16.0); O2 Tension (PaO2) 92.1 mmHg (80.0-100.0); Potassium - ABG Lab 3.5 mmol/L (3.70-5.30); Puncture Site RRA; pH, Arterial 7.43 (7.35-7.45)
--- NOTE | 2017-05-15 08:11 | PRG ---
DATE OF SERVICE: 05/15/2016 Ms. Reid is hospital day 6 following placement of a right frontal external ventricular drain for ob structive hydrocephalus related to a left thalamic hemorrhage. Her head CT yesterday was satisfactor y in regards decompression of her ventricular system with satisfactory positioning of the drain. Her blood is also starting to clear in the ventricular system as well and the fourth ventricle is now op en. This is all encouraging and as such, I raised her EVD to 15 cm of water. Her drain output has b een approximately 6 mL per hour with intracranial pressures ranging from 3-8 mmHg. She does follow c ommands, which is quite encouraging. She has required sedation given the fact that she has been agit ated at times. What I would like to do today is clamp her EVD. I have written an order for opening parameters should it be necessary. My hope is that we can keep the EVD clamped and the fact that her drain output went down despite raising her EVD yesterday is a good sign in that regard. I would pre paco it if we could avoid placement of a shunt for this patient and I am encouraged thus far that we w ill not need to As far as extubation, I would be in favor of it if Dr. Roberson feels it appropriate. Otherwise, obviously consideration of tracheostomy could be entertained. I will come back between s urgeries today to try and see the family.
--- NOTE | 2017-05-15 08:33 | RAD ---
AP CHEST: History: Ventilator dependent patient. Date: 05-15-17 Comparison: 05-14-17 FINDINGS: AP chest demonstrates nasogastric and endotracheal tubes to be in place. ACDF fusions plates in place . There is a left sided pleural effusion. Pulmonary vascular congestion is noted. IMPRESSION: Left sided pleural effusion and pulmonary vascular congestive changes. POS: [facility]
--- NOTE | 2017-05-15 10:41 | PRG ---
DATE OF SERVICE: 05/15/2017 I had a long discussion with Ms. Reid's family and in short in honoring her wishes, we will continu e with the external ventricular drain clamped over the next 24 hours with the understanding that we w ill plan to remove tomorrow, I think along with extubation. At this point, I think we have given her enough time to clear the blood and the family does not wish to pursue tracheostomy, PEG tube or shun ting should it be necessary. I certainly agree with their plan in this regard and the patient's wish es obviously.
[2017-05-15] MEDS: Acetaminophen 325 MG TAB PO PRN (16:31)
--- NOTE | 2017-05-15 20:23 | PRG ---
DATE OF SERVICE: 05/15/2017 SUBJECTIVE: Ms. Reid has not improved much, although she is not any worse. Her ventricular drain was clamped and her ICP throughout the day was remained in low. OBJECTIVE: VITAL SIGNS: Her blood pressure has been stable. She is afebrile. Blood pressure 142/62 this eveni ng, heart rate is 88, respiratory rate is 15. LUNGS: Clear. HEART: Regular rhythm. ABDOMEN: Soft and nontender. She will awaken and interact with her family. LABORATORY DATA: White count is 10, hemoglobin 8, platelets 336,000. Sodium 139, potassium 3.7, chl oride 113, bicarbonate 19, BUN 19, creatinine 1.21, glucose 145, pH 7.43, CO2 27, pO2 of 92. IMAGING: Chest radiograph shows no alveolar infiltrates. She has small left effusion or atelectasis , reviewed by me. IMPRESSION: Respiratory failure associated with a hemorrhagic cerebrovascular accident. Family has an excellent understanding of her prognosis for functional recovery. The plan tomorrow is to pull he r ventriculostomy and extubate her. The plan after that will be not to reintubate her. She will be a do not resuscitate patient and will be from here forward. Dr. Covington met with family and I met with the family as well. All their questions were answered. CRITICAL CARE TIME: 30 minutes.
[2017-05-15] MEDS: Famotidine/PF 20 mg/2ml Vial SLOW IVP SCH (21:05)
[2017-05-16] MEDS: Acetaminophen 325 MG TAB PO PRN (00:50)
[2017-05-16] MEDS: niCARdipine HCl 50 MG in Sodium Chloride 0.9% 250 ML 230 ML IVPB PRN ×4 (00:54→19:07)
[2017-05-16 06:04] LABS: Band 4 % (5-11); Eosinophils 2 % (0-10); Hemoglobin 8.5 g/dL (12.0-16.0); Hypochromia SLIGHT = 6-15 cells (100X) (0-5/hpf); Lymphocytes 12 % (21-51); MDiff Complete? YES; Mean Corpuscular HGB CONC 31.3 g/dL (32.0-36.0); Mean Corpuscular Hemoglobin 27.9 pg (27.0-31.0); Mean Corpuscular Volume 89.4 fl (81.0-99.0); Mean Platelet Volume 7.3 fL (7.4-10.4); Metamyelocyte 1 % (0-0); Monocytes 6 % (0-10); Neutrophil 75 % (42-75); PLT Morphology Comment Appears Adequate; Platelet Count 312 thou/uL (130-400); RBC Distribution Width 12.9 % (11.5-14.5); Red Blood Cell (RBC) Count 3.06 mill/uL (4.20-5.40); White Blood Cell (WBC) Count 10.8 thou/uL (4.8-10.8)
[2017-05-16 06:10] LABS: Anion Gap 12 mmol/L (10-20); BUN (Urea Nitrogen) 24 mg/dL (9.8-20.1); Calc. Creatinine Clearance 47 mL/min (70-130); Calcium 8.2 mg/dL (7.8-10.44); Carbon Dioxide 20 mmol/L (23-31); Chloride 110 mmol/L (98-107); Estimated GFR-MDRD 41; Glucose 227 mg/dL (83-110); Potassium 3.7 mmol/L (3.5-5.1); Sodium 138 mmol/L (136-145)
[2017-05-16] MEDS: Sodium Chloride 0.9% 1,000 ML IV SCH ×2 (07:18→13:05)
--- NOTE | 2017-05-16 07:33 | PRG ---
DATE OF SERVICE: 05/16/2017 Ms. Reid is still intubated. She is nonresponsive due to sedation. According to nurse's report, s he is more responsive, able to move her extremities. PHYSICAL EXAMINATION LUNGS: Clear. HEART: Reveals no murmur. LABORATORY DATA: Her white blood count is 10.8, hemoglobin 8.5, hematocrit 27.3. Chemistry: Sodium 138 and potassium 3.7. Blood sugars are adequately controlled. IMPRESSION: Intracerebral hemorrhage, improvement by history. PLAN: Continue supportive care at this time. Await further recommendations regarding extubation fro m Pulmonary as well as neurological input.
[2017-05-16] MEDS: Scopolamine 1.5 mg/72 hour Patch TD SCH (09:01)
--- NOTE | 2017-05-16 09:06 | PRG ---
DATE OF SERVICE: 05/16/2017 Ms. Reid did not require opening of her external ventricular drain overnight and as such I have rem lambert it. On exam she opens her eyes, but she does not follow commands. She localizes. The plan is for extubation today. The family wishes to pursue nonaggressive measures should the patient succumbe d to hydrocephalus and she will likely be made DNR/DNI later today.
--- NOTE | 2017-05-16 09:12 | RAD ---
PORTABLE CHEST: History: Respiratory distress. Comparison: Prior day's study. FINDINGS: Endotracheal and NG tubes are in satisfactory position. Subsegmental atelectatic changes are seen in the lung bases. Vascular engorgement is improved since the prior examination. IMPRESSION: Improving pulmonary vascular engorgement with resolving interstitial lung changes and improving atele ctatic lung change. POS: OFF
[2017-05-16] MEDS: Insulin Regular 300 UNITS/3 ML VIAL SC PRN (09:57)
[2017-05-16 11:04] VITALS: BP 120/55
[2017-05-16] MEDS ORDERED: Morphine 4 MG/ML Carpuject SLOW IVP PRN (13:59)
[2017-05-16] MEDS: Morphine 10 MG/ML CARPUJECT SLOW IVP PRN ×3 (14:24→20:40)
--- NOTE | 2017-05-16 17:31 | PRG ---
DATE OF SERVICE: 05/16/2017 SUBJECTIVE: Shira Reid had a ventriculostomy removed this morning. We extubated her shortly the reafter when family arrived. Lungs, heart, and abdomen are unchanged prior to extubation. After extubation, became quickly very clear that she was having upper airway collapse with respirator y effort. Her intake and outputs negative 1465 this morning. LABORATORY DATA: White count 10.8, hemoglobin 8.5, platelets 312,000. Sodium 138, potassium 3.7, chloride 110, bicarbonate 20, BUN 24, creatinine 1.28. IMPRESSION: 1. Parenchymal brain hemorrhage. 2. Early dementia. 3. Deconditioning. PLAN: Comfort care. In my opinion, she can survive this based on her current respiratory pattern. She will be given morphine for comfort. Family has been updated. CRITICAL CARE: 30 minutes.
[2017-05-16] MEDS: Famotidine/PF 20 mg/2ml Vial SLOW IVP SCH (20:41)
[2017-05-17] MEDS: Sodium Chloride 0.9% 1,000 ML IV SCH (05:07)
[2017-05-17 05:10] LABS: Band 1 % (5-11); Eosinophils 5 % (0-10); Hemoglobin 8.3 g/dL (12.0-16.0); Lymphocytes 13 % (21-51); MDiff Complete? YES; Mean Corpuscular HGB CONC 31.7 g/dL (32.0-36.0); Mean Corpuscular Hemoglobin 27.7 pg (27.0-31.0); Mean Corpuscular Volume 87.3 fl (81.0-99.0); Mean Platelet Volume 6.1 fL (7.4-10.4); Monocytes 2 % (0-10); Neutrophil 79 % (42-75); Platelet Count 399 thou/uL (130-400); White Blood Cell (WBC) Count 11.1 thou/uL (4.8-10.8)
[2017-05-17 05:13] LABS: Anion Gap 12 mmol/L (10-20); BUN (Urea Nitrogen) 21 mg/dL (9.8-20.1); Calc. Creatinine Clearance 48 mL/min (70-130); Calcium 8.2 mg/dL (7.8-10.44); Carbon Dioxide 18 mmol/L (23-31); Chloride 115 mmol/L (98-107); Estimated GFR-MDRD 41; Glucose 150 mg/dL (83-110); Potassium 3.7 mmol/L (3.5-5.1); Sodium 141 mmol/L (136-145)
[2017-05-17] MEDS: niCARdipine HCl 50 MG in Sodium Chloride 0.9% 250 ML 230 ML IVPB PRN (06:18)
--- NOTE | 2017-05-17 08:16 | RAD ---
PORTABLE AP CHEST: Date: 05-17-17 History: On ventilator. Comparison: 05-16-17 FINDINGS: Endotracheal tube and nasogastric tubes have been removed. There is atelectasis present at each lung base. Cardiac silhouette and pulmonary vasculature are within normal limits for the technique of the exam. Post-surgical changes lower cervical spine are again seen. IMPRESSION: Bibasilar atelectasis with interval removal of endotracheal and nasogastric tubes. POS: [facility]
--- NOTE | 2017-05-17 08:17 | PRG ---
DATE OF SERVICE: 05/17/2017 Ms. Reid is awake. She does respond to spoken words. She responds to my voice. She is still dens ewelina pruritic on the right side. PHYSICAL EXAMINATION: VITAL SIGNS: Blood pressure 130/68, pulse 111, temperature 98.7. LUNGS: Reveal scattered rhonchi, no wheezes. HEART: Reveals tachycardia without murmur. LABORATORY: Hemoglobin 8.3, 26.2. Blood sugars are out of control. Urine culture is growing Pseudo monas aeruginosa. This is sensitive to multiple antibiotics. IMPRESSION: 1. Thalamic bleed. 2. Urinary tract infection. PLAN: Dr. Covington discussed with the family relatively taken an approach of less intervention. The f lin was in agreement with this. Do not see the prognosis improving for her significantly. She pro bably could be moved out of the unit here in a few hours.
--- NOTE | 2017-05-17 10:09 | PRG ---
DATE OF SERVICE: 05/17/2017 SUBJECTIVE: Ms. Reid is hospital day #8, admitted for obstructive hydrocephalus related to a left thalamic hemorrhage with intraventricular extension. Her external ventricular drain was weaned and r emoved. This morning, she is alert, she opens her eyes to voice. She has a disconjugate gaze with a nisocoria. She has right-sided hemiplegia. She does try and attend to the exam and I suspect she de luna s diplopia. Her hemorrhage extends from the left thalamus into the mesencephalon. She localizes in the left arm and moves spontaneously and again is hemiplegic in the right arm and right leg. She wit hdraws in the left leg. She is extubated. The family has wished to deescalate care. I will be fine with raising her systolic blood pressure allowance to 160 and treat over that level. This will allo w her to get out of the ICU and off the nicardipine drip. We will arrange appropriate followup in ou r clinic. Sign off at this time. I should note her external ventricular drain wound is dry.
[2017-05-17] MEDS: Morphine 10 MG/ML CARPUJECT SLOW IVP PRN ×2 (11:01→12:27)
[2017-05-17] MEDS ORDERED: Morphine 4 MG/ML Carpuject SLOW IVP PRN (11:06)
[2017-05-17] MEDS ORDERED: Sodium Chloride 0.9% 1,000 ML IV SCH (11:07)
--- NOTE | 2017-05-17 11:15 | PRG ---
DATE OF SERVICE: 05/17/2017 Ms. Reid became tachycardic yesterday afternoon. This was all related to respiratory distress. PHYSICAL EXAMINATION: VITAL SIGNS: Her heart rates in the 1-teens now. Blood pressure 141/74, respiratory rates in the te ens. LUNGS: Lungs are remarkable for rhonchi bilaterally. HEART: Regular rhythm. ABDOMEN: Abdomen is soft. She is still hemiplegic on the right. It does not appear that she is improving and she is quite somnolent most of the day. I think it is reasonable to consider inpatient hospice for her based on my interactions with the chiquis fulton
[2017-05-17 11:27] VITALS: TEMP 98.8
--- NOTE | 2017-05-21 09:16 | DIS ---
DATE OF ADMISSION: 05/09/2017 DATE OF DISCHARGE: 05/17/2017 Avery Bocanegra PA-C dictating for Arnulfo Covington M.D. DISCHARGE DIAGNOSES: 1. Intraventricular hemorrhage with neurologic decline. 2. Seizure disorder. 3. Dementia. 4. Transient ischemic attack. 5. Hyponatremia. 6. Type 2 diabetes. 7. Hypertension. HOSPITAL COURSE: Ms. Reid presented to [facility] with her family due to altered me ntal status. She was found unresponsive with left thalamic hemorrhage. She emergently underwent EVD placement or hemorrhage and throughout her hospital course, was seen by multiple medical specialists including Critical Care and Neurosurgery. The patient had minimal improvement in her neurologic sta tus after several overnight stays at [facility] and her family decided to withdraw care and have her discharged home on hospice care. Outpatient followup appointments are not necessary at this time, so the patient again was deemed to have a terminal condition and again was placed on hospice. The family at the time of discharge was very appreciative of all the medical care the patient receiv ed at [facility].
--- NOTE | 2017-05-26 17:34 | EKG ---
Test Reason : Blood Pressure : / mmHG Vent. Rate : 117 BPM Atrial Rate : 117 BPM P-R Int : 176 ms QRS Dur : 086 ms QT Int : 340 ms P-R-T Axes : 068 070 039 degrees QTc Int : 474 ms Sinus tachycardia Septal infarct , age undetermined Abnormal ECG Confirmed by JEANNE BENITO, DARIAN ([id number]), editor managing newspaper MITZI GOODMAN ([id number]) on 05/26/2017 5:33:35 PM Referred By: Confirmed By:DARIAN ANGEL MD
== END 2017-05-17 15:10 | disposition hospice, inpatient (51) | DRG 23 ==
LOC: ERS 16:39 → CCU 18:30
PROVIDERS: ADMIT Family Medicine; ATTEND Family Medicine
PROC: 5A1955Z Respiratory Ventilation, Greater than 96 Consecutive Hours (ICD-10-PCS; 2017-05-09)
PROC: 009600Z Drainage of Cerebral Ventricle with Drainage Device, Open Approach (ICD-10-PCS; principal; 2017-05-10)
DX: I61.5 Nontraumatic intracerebral hemorrhage, intraventricular (principal); J96.00 Acute respiratory failure, unspecified whether with hypoxia or hypercapnia; N17.9 Acute kidney failure, unspecified; G91.1 Obstructive hydrocephalus; N39.0 Urinary tract infection, site not specified; G81.91 Hemiplegia, unspecified affecting right dominant side; E87.1 Hypo-osmolality and hyponatremia; F03.90 Unspecified dementia, unspecified severity, without behavioral disturbance, psychotic disturbance, mood disturbance, and anxiety; I10 Essential (primary) hypertension; R40.2432 Glasgow coma scale score 3-8, at arrival to emergency department; Z66 Do not resuscitate; E87.6 Hypokalemia; R77.1 Abnormality of globulin; E11.22 Type 2 diabetes mellitus with diabetic chronic kidney disease; I12.9 Hypertensive chronic kidney disease with stage 1 through stage 4 chronic kidney disease, or unspecified chronic kidney disease; N18.2 Chronic kidney disease, stage 2 (mild); G40.909 Epilepsy, unspecified, not intractable, without status epilepticus
CPT/HCPCS: 36415; 36416; 51702; 70450; 71045; 80048; 80053; 81003; 82553; 82805; 84484; 85007; 85025; 85027; 85610; 85730; 87040; 87077; 87086; 87186; 93005; 93970; 94002; 94003; 96365; 96366; 96375; A4216; G8978-GP-CN; G8979-GP-CL; G8987-GO-CN; G8988-GO-CN; G8989-GO-CN; J0690; J1815; J1953; J2150; J2270; J2704; J3010; J7050; J7799; S0028